=== PATIENT | female | born 1970 | race Caucasian/White ===

== ENCOUNTER 2017-02-03 19:25 | Inpatient (IN) | payer OTHER ==
[~2017-02-03] VITALS: Ht 157.5 cm; Wt 60.6 kg
[~2017-02-03 19:25] MED LIST: CYCL-36 PO
[2017-02-03 19:38] VITALS: BP 106/67; PULSE 99; RESP 16; TEMP 100; O2SAT 100
[2017-02-03 19:53] VITALS: BP 106/67; PULSE 99; RESP 16; TEMP 100; O2SAT 100
[2017-02-03] MEDS ORDERED: APIX5TAB PO (20:02)
[2017-02-03] MEDS ORDERED: MELA1TAB18 PO (20:02)
[2017-02-03] MEDS ORDERED: CLAR10CA3 PO (20:02)
[2017-02-03] MEDS ORDERED: PROM25TA10 PO (20:02)
[2017-02-03] MEDS ORDERED: LORA-474 PO (20:02)
[2017-02-03] MEDS ORDERED: SODIUM CHLOR 0.9% 1000 ML INJ 1,000 ML IV ONE (20:04)
[2017-02-03] MEDS ORDERED: PROMETHAZINE HCL 25 MG TAB PO ONE (20:15)
[2017-02-03] MEDS ORDERED: LORazepam 2 MG/ML VIAL IV PUSH ONE (20:15)
--- NOTE | 2017-02-03 20:16 | PD ---
HPI Chief Complaint: GI Complaint Time Seen by Provider: 19:58 Travel History International Travel<30 days: No Contact w/Intl Traveler<30days: No Traveled to known affect area: No History of Present Illness HPI 46-year-old female with history of breast cancer status post bilateral mastectomy, first round of chemotherapy 1 week ago at [facility], diagnosed with a left upper extremity DVT one week ago and started on Eliquis, here for evaluation of fevers, chills, nausea, vomiting. Symptoms started yesterday. Occasionally she has sharp epigastric abdominal discomfort/pain. Currently she denies having abdominal pain. She has had some loose bowel movements. Emesis and bowel movements have been nonbloody. She denies cough, hemoptysis, or upper respiratory symptoms. PFSH Past Medical History Cancer: Yes (BREAST) Cardiovascular Problems: No Chemotherapy: Yes (LAST [place] 01/27) Diabetes: No Diminished Hearing: No Glaucoma: No Hepatitis: No Hiatal Hernia: No Hypertension: No Medical other: Yes (EPILEPSY A CHILD) Respiratory: No Thyroid Disease: No ?: Unknown Past Surgical History Oral Surgery: Yes (TONSILLECTOMY) Pacemaker: No Tonsillectomy: Yes Other Surgery: Yes (ACL REPAIR AND TUMOR REMOVED FROM THUMB) Social History Alcohol Use: Yes (OCC) Tobacco Use: No Substance Use: No Allergies-Medications (Allergen,Severity, Reaction): Coded Allergies: Bee Sting (Verified Allergy, Severe, ENTIRE BODY SWELLS, 02/03/17) Penicillin (Verified Allergy, Severe, HIVES, 02/03/17) Cipro (Verified Allergy, Unknown, 02/03/17) Reported Meds & Prescriptions Reported Meds & Active Scripts Active Reported Melatonin 10 Mg Tab 10 Mg PO HS PRN Ativan (Lorazepam) 1 Mg Tab 1 Mg PO Q8H PRN Claritin (Loratadine) 10 Mg Cap 10 Mg PO DAILY Phenergan (Promethazine HCl) 25 Mg Tablet 25 Mg PO Q6H PRN Eliquis (Apixaban) 5 Mg Tab 10 Mg PO BID Review of Systems Except as stated in HPI: all other systems reviewed are Neg Physical Exam Narrative GENERAL: Well-developed, well-nourished, no acute distress. SKIN: Focused skin assessment warm/dry. No rash. HEAD: Atraumatic. Normocephalic. EYES: Pupils equal and round. No scleral icterus. No injection or drainage. ENT: Mucous membranes pink and moist. NECK: Trachea midline. No JVD. No nuchal rigidity. CARDIOVASCULAR: Regular rate and rhythm. RESPIRATORY: No accessory muscle use. Clear to auscultation. Breath sounds equal bilaterally. GASTROINTESTINAL: Abdomen soft, non-tender, nondistended. MUSCULOSKELETAL: Left arm with moderate edema with compared to the right with moderate diffuse tenderness. Left arm is supple. NEUROLOGICAL: Awake and alert. No obvious cranial nerve deficits. Motor grossly within normal limits. Normal speech. PSYCHIATRIC: Appropriate mood and affect; insight and judgment normal. Data Data Last Documented VS Vital Signs Date Time Temp Pulse Resp B/P Pulse Ox O2 Delivery O2 Flow Rate FiO2 02/03/17 22:00 101 18 97/56 99 Room Air 02/03/17 19:53 100.0 Orders Complete Blood Count With Diff (02/03/17 20:04) Comprehensive Metabolic Panel (02/03/17 20:04) Beta Hcg (Quant/Titer) (02/03/17 20:04) Prothrombin Time / Inr (Pt) (02/03/17 20:04) Act Partial Throm Time (Ptt) (02/03/17 20:04) Lactic Acid Sepsis Protocol (02/03/17 20:04) Urinalysis - C+S If Indicated (02/03/17 20:04) Influenzae A/B Antigen (02/03/17 20:04) Blood Culture (02/03/17 20:04) Chest, Single Ap (02/03/17 20:04) Blood Glucose (02/03/17 20:04) Ecg Monitoring (02/03/17 20:04) Iv Access Insert/Monitor (02/03/17 20:04) Oximetry (02/03/17 20:04) Oxygen Administration (02/03/17 20:04) Sodium Chlor 0.9% 1000 Ml Inj (Ns 1000 M (02/03/17 20:04) Promethazine (Phenergan) (02/03/17 20:15) Lorazepam Inj (Ativan Inj) (02/03/17 20:15) Acetaminophen (Tylenol) (02/03/17 21:30) Morphine Inj (Morphine Inj) (02/03/17 21:45) Piperacil-Tazo 4.5 Gm Premix (Zosyn 4.5 (02/03/17 22:15) Influenzae A/B Antigen (02/03/17 22:21) Cefepime Inj (Maxipime Inj) (02/03/17 22:30) Admit To Inpatient (02/03/17 ) Vital Signs (Adult) Q4H (02/03/17 22:23) Activity Oob With Assistance (02/03/17 22:23) Geological Manager / Telemetry .CONTINUOUS (02/03/17 22:23) Diet Heart Healthy (02/04/17 Breakfast) Sodium Chloride 0.9% Flush (Ns Flush) (02/03/17 22:30) Sodium Chloride 0.9% Flush (Ns Flush) (02/04/17 09:00) Basic Metabolic Panel (Bmp) (02/04/17 06:00) Complete Blood Count With Diff (02/04/17 06:00) Case Management Consult (02/03/17 22:23) Naloxone Inj (Narcan Inj) (02/03/17 22:30) Inpatient Certification (02/03/17 ) Admit Order (Ed Use Only) (02/03/17 22:25) Vancomycin Consult Pharmacy (Vancomycin (02/03/17 22:30) Cefepime Inj (Maxipime Inj) (02/04/17 12:00) Labs Laboratory Tests Test 02/03/17 02/03/17 20:50 21:30 White Blood Count 1.4 TH/MM3 Red Blood Count 4.15 MIL/MM3 Hemoglobin 12.5 GM/DL Hematocrit 37.1 % Mean Corpuscular Volume 89.3 FL Mean Corpuscular Hemoglobin 30.1 PG Mean Corpuscular Hemoglobin 33.7 % Concent Red Cell Distribution Width 12.4 % Platelet Count 145 TH/MM3 Mean Platelet Volume 8.3 FL Neutrophils (%) (Auto) % Lymphocytes (%) (Auto) % Monocytes (%) (Auto) % Eosinophils (%) (Auto) % Basophils (%) (Auto) % Neutrophils # (Auto) TH/MM3 Lymphocytes # (Auto) TH/MM3 Monocytes # (Auto) TH/MM3 Eosinophils # (Auto) TH/MM3 Basophils # (Auto) TH/MM3 CBC Comment AUTO DIFF Differential Total Cells 100 Counted Neutrophils % (Manual) 3 % Lymphocytes % 89 % Monocytes % 7 % Basophils % 1 % Neutrophils # (Manual) 0.0 TH/MM3 Differential Comment FINAL DIFF MANUAL Platelet Estimate LOW Platelet Morphology Comment NORMAL Red Cell Morphology Comment NORMAL Prothrombin Time 10.3 SEC Prothromb Time International 0.9 RATIO Ratio Activated Partial 32.0 SEC Thromboplast Time Sodium Level 136 MEQ/L Potassium Level 3.9 MEQ/L Chloride Level 105 MEQ/L Carbon Dioxide Level 23.0 MEQ/L Anion Gap 8 MEQ/L Blood Urea Nitrogen 10 MG/DL Creatinine 0.61 MG/DL Estimat Glomerular Filtration 107 ML/MIN Rate Random Glucose 104 MG/DL Lactic Acid Level 1.4 mmol/L Calcium Level 8.2 MG/DL Total Bilirubin 0.5 MG/DL Aspartate Amino Transf 79 U/L (AST/SGOT) Alanine Aminotransferase 176 U/L (ALT/SGPT) Alkaline Phosphatase 131 U/L Total Protein 6.9 GM/DL Albumin 3.3 GM/DL Human Chorionic Gonadotropin, LESS THAN 1 Quant MIU/ML Urine Color YELLOW Urine Turbidity CLEAR Urine pH 8.0 Urine Specific [place] 1.020 Urine Protein NEG mg/dL Urine Glucose (UA) 1000 OR GREATER mg/dL Urine Ketones NEG mg/dL Urine Occult Blood SMALL Urine Nitrite NEG Urine Bilirubin NEG Urine Leukocyte Esterase NEG Urine RBC 0-3 /hpf Urine WBC 3-5 /hpf Urine Squamous Epithelial 0-5 /hpf Cells Microscopic Urinalysis Comment CATH-CULT NOT IND MDM Medical Decision Making Medical Screen Exam Complete: Yes Emergency Medical Condition: Yes Medical Record Reviewed: Yes Differential Diagnosis Neutropenic fever, pneumonia, UTI, bacteremia, acute/surgical intra-abdominal process less likely Narrative Course Initial vital signs show heart rate 99, blood pressure 106/67, pulse ox 100% on room air, oral temp of 100F. CBC is remarkable for WBC 1.4, platelets 145, percent neutrophils and 3% CMP is remarkable for AST 79, ALT 176, otherwise unremarkable. Beta hCG is negative. Lactic acid is 1.4 UA shows 1000 greater glucose, small occult blood, not suggestive of UTI. Chest x-ray: No acute disease. Case discussed with on-call oncology fellow at [facility] covering for the patient' s oncologist Dr. Tony. Recommends admission with IV antibiotics and follow up blood cultures. Patient will be started on IV vancomycin and IV cefepime. Patient and the patient's family were made aware of all findings and plan for admission for IV antibiotics. Case discussed with hospitalist Dr. Salguero who will admit the patient to her service for neutropenic fever without obvious source. Critical Care Narrative Aggregate critical care time was 35 minutes. Time to perform other separately billable procedures was not included in the critical care time. My time did not include minutes spent treating any other patients simultaneously or on activities that did not directly contribute to the patient's treatment. The services I provided to this patient were to treat and/or prevent clinically significant deterioration that could result in: , permanent disability, septic shock I provided critical care services requiring my management, as noted below: Chart data review, documentation time, medication orders and management, vital sign assessments/reviewing monitor data, ordering and reviewing lab tests, ordering and interpreting/reviewing x-rays and diagnostic studies, care of the patient and discussion of the patient with the admitting physicians. Diagnosis Primary Impression: Neutropenic fever Admitting Information Admitting Physician Requests: Admit Tello Allen MD Feb 03, 2017 20:16
--- NOTE | 2017-02-03 20:31 | RADRPT ---
EXAM DATE/TIME: 02/03/2017 20:06 [facility] COMPARISON: CHEST SINGLE AP, May 16, 2015, 18:01. INDICATIONS : Fever. MEDICAL HISTORY : Carcinoma, breast. SURGICAL HISTORY : Infusaport. ENCOUNTER: Initial ACUITY: 1 day PAIN SCORE: 0/10 LOCATION: Bilateral chest FINDINGS: A single view of the chest demonstrates the lungs to be symmetrically aerated without evidence of mas s, infiltrate or effusion. The cardiomediastinal contours are unremarkable. Osseous structures are intact. CONCLUSION: No acute disease. Corwin Wallace MD on February 03, 2017 at 20:29 Board Certified Radiologist. This report was verified electronically.
[2017-02-03 21:01] LABS: HEMATOCRIT 37.1 % (35.0-46.0); MEAN CELL VOLUME 89.3 FL (80.0-100.0); MEAN CORPUSCULAR HEMOGLOBIN 30.1 PG (27.0-34.0); MEAN CORPUSCULAR HGB CONC 33.7 % (32.0-36.0); PLATELET COUNT 145 TH/MM3 (150-450); RED BLOOD COUNT 4.15 MIL/MM3 (4.00-5.30); RED CELL DISTRIBUTION WIDTH 12.4 % (11.6-17.2); WHITE BLOOD COUNT 1.4 TH/MM3 (4.0-11.0)
[2017-02-03 21:09] LABS: CHLORIDE 105 MEQ/L (98-107); POTASSIUM 3.9 MEQ/L (3.5-5.1); SODIUM (NA) 136 MEQ/L (136-145)
[2017-02-03 21:13] LABS: ANION GAP 8 MEQ/L (5-15); BLOOD UREA NITROGEN 10 MG/DL (7-18); HEMO FLAGS AUTO DIFF
[2017-02-03 21:16] LABS: ALT (GPT) 176 U/L (10-53); AST (GOT) 79 U/L (15-37); GLOMERULAR FILTRATION RATE 107 ML/MIN (>89)
[2017-02-03 21:17] LABS: TOTAL BILIRUBIN ADULT 0.5 MG/DL (0.2-1.0)
[2017-02-03 21:19] LABS: ALKALINE PHOSPHATASE 131 U/L (45-117)
[2017-02-03 21:21] LABS: BETA HCG QUANT LESS THAN 1 MIU/ML (0-5)
[2017-02-03 21:30] LABS: BLOOD, URINE SMALL (NEG); KETONE, URINE NEG (NEG); NITRITE,URINE NEG (NEG)
[2017-02-03] MEDS ORDERED: ACETAMINOPHEN 325 MG TAB PO ONE (21:30)
[2017-02-03 21:35] LABS: GLUCOSE,URINE 1000 OR GREATER mg/dL (NEG)
[2017-02-03 21:38] LABS: INTERNATIONAL NORMALIZED RATIO 0.9 RATIO; PROTHROMBIN TIME - PATIENT 10.3 SEC (9.8-11.6)
[2017-02-03] MEDS ORDERED: MORPHINE SULFATE 4 MG/ML INJ IV PUSH ONE (21:45)
[2017-02-03 21:47] LABS: BASOPHILS 1 % (0-2); PLATELET ESTIMATE SMEAR LOW (NORMAL); PLATELET MORPHOLOGY NORMAL (NORMAL); POLYS (SEG NEUTROPHILS) 3 % (16-70); SCAN/DIFF FINAL DIFF MANUAL; WBC DIFF SAMPLE 100
[2017-02-03 22:00] VITALS: BP 97/56; PULSE 101; RESP 18; O2SAT 99
[2017-02-03 22:02] LABS: URINE COLOR YELLOW (YELLW/STRAW)
[2017-02-03 22:03] LABS: COMMENT (UR) CATH-CULT NOT IND; CULTURE IF INDICATED CATH CULTURE NOT IND; RBC, URINE 0-3 /hpf (0-3); SQUAMOUS EPITHELIAL CELL URINE 0-5 /hpf (0-5)
[2017-02-03] MEDS ORDERED: PIPERACIL-TAZO 4.5 GM PREMIX 100 ML IV ONE (22:15)
[2017-02-03] MEDS ORDERED: SODIUM CHLORIDE 0.9% FLUSH 10 ML FLUSH IV FLUSH PRN (22:30)
[2017-02-03] MEDS ORDERED: Vancomycin Consult Pharmacy 1 EA OTHER SCH (22:30)
[2017-02-03] MEDS ORDERED: CEFEPIME INJ 1,000 MG in SODIUM CHLORIDE 0.9% INJ 100 ML IV ONE (22:30)
[2017-02-03] MEDS ORDERED: VANCOMYCIN INJ 1,000 MG in SODIUM CHLOR 0.9% 250 ML INJ 250 ML IV ONE (22:30)
[2017-02-03] MEDS ORDERED: NALOXONE HCL 0.4 MG/ML AMP IV PRN (22:30)
[2017-02-03 22:52] VITALS: BP 95/58; PULSE 95; RESP 16; TEMP 98.6; O2SAT 96
[2017-02-03 23:48] VITALS: BP 97/59; PULSE 88; RESP 16; O2SAT 100
[2017-02-04] VITALS (7 sets, daily range): BP systolic 96–119; BP diastolic 52–74; PULSE 88–102; RESP 16; TEMP 98.1–99.2; O2SAT 96–99
[2017-02-04] MEDS ORDERED: VANCOMYCIN INJ 1,600 MG in SODIUM CHLORID 0.9% 500 ML INJ 500 ML IV SCH (01:00)
[2017-02-04] MEDS ORDERED: MELATONIN 5 MG TAB PO ONE (02:15)
[2017-02-04] MEDS ORDERED: LORazepam 1 MG TAB PO ONE (02:15)
[2017-02-04 07:49] LABS: HEMATOCRIT 32.7 % (35.0-46.0); MEAN CORPUSCULAR HEMOGLOBIN 30.4 PG (27.0-34.0); PLATELET COUNT 126 TH/MM3 (150-450); RED BLOOD COUNT 3.55 MIL/MM3 (4.00-5.30); RED CELL DISTRIBUTION WIDTH 12.9 % (11.6-17.2); WHITE BLOOD COUNT 1.6 TH/MM3 (4.0-11.0)
[2017-02-04 07:51] LABS: HEMO FLAGS AUTO DIFF
[2017-02-04 07:55] LABS: POTASSIUM 4.1 MEQ/L (3.5-5.1)
[2017-02-04 07:58] LABS: BICARBONATE 22.7 MEQ/L (21.0-32.0)
[2017-02-04 08:34] LABS: BANDS 1 % (0-6); EOSINOPHILS 1 % (0-4); POLYS (SEG NEUTROPHILS) 9 % (16-70); WBC DIFF SAMPLE 100
[2017-02-04 08:35] LABS: DOHLE BODIES PRESENT (NONE SEEN); PLATELET ESTIMATE SMEAR LOW (NORMAL); PLATELET MORPHOLOGY NORMAL (NORMAL); SCAN/DIFF FINAL DIFF MANUAL
[2017-02-04 08:36] LABS: NEUTROPHIL # MANUAL DIFF 0.2 TH/MM3 (1.8-7.7)
[2017-02-04] MEDS: SODIUM CHLORIDE 0.9% FLUSH 10 ML FLUSH IV FLUSH SCH ×2 (09:00→20:45)
[2017-02-04] MEDS ORDERED: PROMETHAZINE HCL 25 MG TAB PO PRN ×2 (11:00→18:00)
--- NOTE | 2017-02-04 11:04 | HHI.HP ---
[facility] Service [place] [facility] Primary Care Physician No Primary Care Physician Admission Diagnosis neutropenic fever Diagnoses: Travel History International Travel<30 Days: No Contact w/Intl Traveler <30 Da: No Traveled to Known Affected Are: No History of Present Illness 46-year-old female with a history of breast cancer status post bilateral mastectomy, with most recent round of chemotherapy one week ago at [facility] in [facility] as well as diagnosis of left upper extremity DVT one week ago on Eliquis. He presents with a one-week history of nausea, vomiting, as well as a 3 day history of fevers up to 102 Fahrenheit. She reports some constipation which has resolved, however no diarrhea. She does have some pain at left axilla from DVT, however denies any new pain. Review of Systems Performed and negative except for history of present illness and past medical history. Past Family Social History Past Medical History Breast cancer. Status post bilateral mastectomy. Most recent chemotherapy 01/27. Epilepsy as a child. Past Surgical History Bilateral mastectomy Bone graft left arm Tonsillectomy Anterior cruciate ligament repair Reported Medications Reported Meds & Active Scripts Active Reported Melatonin 10 Mg Tab 10 Mg PO HS PRN Ativan (Lorazepam) 1 Mg Tab 1 Mg PO Q8H PRN Claritin (Loratadine) 10 Mg Cap 10 Mg PO DAILY Phenergan (Promethazine HCl) 25 Mg Tablet 25 Mg PO Q6H PRN Eliquis (Apixaban) 5 Mg Tab 10 Mg PO BID Allergies: Coded Allergies: Bee Sting (Verified Allergy, Severe, ENTIRE BODY SWELLS, 02/03/17) Penicillin (Verified Allergy, Severe, HIVES, 02/03/17) Cipro (Verified Allergy, Unknown, 02/03/17) Family History Mother with breast cancer diagnosed at age 36. Father healthy Social History Nonsmoker. Nondrinker. Denies illicit drugs. 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 Physical Exam Vital Signs Vital Signs Date Time Temp Pulse Resp B/P Pulse Ox O2 Delivery O2 Flow Rate FiO2 02/04/17 09:00 98.1 88 16 104/71 98 02/04/17 08:10 88 16 106/59 99 Room Air 7/25/17 07:16 99 Room Air 02/04/17 07:16 16 99 Room Air 02/04/17 06:51 94 16 96/52 98 Room Air 02/03/17 23:48 88 16 97/59 100 Room Air 02/03/17 22:52 98.6 95 16 95/58 96 Room Air 02/03/17 22:29 16 02/03/17 22:29 16 02/03/17 22:00 101 18 97/56 99 Room Air 02/03/17 19:53 100.0 99 16 106/67 100 02/03/17 19:38 100.0 99 16 106/67 100 Physical Exam GENERAL: This is a well-nourished, well-developed patient, in no apparent distress. Alert and oriented 3. SKIN: No rashes, ecchymoses or lesions. Cool and dry. [id number] in place. No surrounding erythema. HEAD: Atraumatic. Normocephalic. No temporal or scalp tenderness. EYES: Pupils equal round and reactive. Extraocular motions intact. No scleral icterus. No injection or drainage. ENT: Nose without bleeding, purulent drainage or septal hematoma. Throat without erythema, tonsillar hypertrophy or exudate. Uvula midline. Airway patent. NECK: Trachea midline. No JVD or lymphadenopathy. Supple, nontender, no meningeal signs. CARDIOVASCULAR: Regular rate and rhythm without murmurs, gallops, or rubs. RESPIRATORY: Clear to auscultation. Breath sounds equal bilaterally. No wheezes , rales, or rhonchi. GASTROINTESTINAL: Abdomen soft, non-tender, nondistended. No hepato-splenomegaly , or palpable masses. No guarding. MUSCULOSKELETAL: Extremities without clubbing, cyanosis, or edema. No joint tenderness, effusion, or edema noted. No calf tenderness. Negative Homans sign bilaterally. NEUROLOGICAL: Awake and alert. Cranial nerves II through XII intact. Motor and sensory grossly within normal limits. Five out of 5 muscle strength in all muscle groups. Normal speech. Laboratory Laboratory Tests Test 02/03/17 02/03/17 02/04/17 20:50 21:30 07:30 White Blood Count 1.4 1.6 Red Blood Count 4.15 3.55 Hemoglobin 12.5 10.8 Hematocrit 37.1 32.7 Mean Corpuscular Volume 89.3 92.0 Mean Corpuscular Hemoglobin 30.1 30.4 Mean Corpuscular Hemoglobin 33.7 33.0 Concent Red Cell Distribution Width 12.4 12.9 Platelet Count 145 126 Mean Platelet Volume 8.3 8.0 Neutrophils (%) (Auto) Lymphocytes (%) (Auto) Monocytes (%) (Auto) Eosinophils (%) (Auto) Basophils (%) (Auto) Neutrophils # (Auto) Lymphocytes # (Auto) Monocytes # (Auto) Eosinophils # (Auto) Basophils # (Auto) CBC Comment AUTO DIFF AUTO DIFF Differential Total Cells 100 100 Counted Neutrophils % (Manual) 3 9 Lymphocytes % 89 81 Monocytes % 7 8 Basophils % 1 Neutrophils # (Manual) 0.0 0.2 Differential Comment FINAL DIFF FINAL DIFF MANUAL MANUAL Platelet Estimate LOW LOW Platelet Morphology Comment NORMAL NORMAL Red Cell Morphology Comment NORMAL Prothrombin Time 10.3 Prothromb Time International 0.9 Ratio Activated Partial 32.0 Thromboplast Time Sodium Level 136 140 Potassium Level 3.9 4.1 Chloride Level 105 109 Carbon Dioxide Level 23.0 22.7 Anion Gap 8 8 Blood Urea Nitrogen 10 9 Creatinine 0.61 0.55 Estimat Glomerular Filtration 107 120 Rate Random Glucose 104 103 Lactic Acid Level 1.4 Calcium Level 8.2 7.6 Total Bilirubin 0.5 Aspartate Amino Transf 79 (AST/SGOT) Alanine Aminotransferase 176 (ALT/SGPT) Alkaline Phosphatase 131 Total Protein 6.9 Albumin 3.3 Human Chorionic Gonadotropin, LESS THAN 1 Quant Urine Color YELLOW Urine Turbidity CLEAR Urine pH 8.0 Urine Specific [place] 1.020 Urine Protein NEG Urine Glucose (UA) 1000 OR GREATER Urine Ketones NEG Urine Occult Blood SMALL Urine Nitrite NEG Urine Bilirubin NEG Urine Leukocyte Esterase NEG Urine RBC 0-3 Urine WBC 3-5 Urine Squamous Epithelial 0-5 Cells Microscopic Urinalysis Comment CATH-CULT NOT IND Band Neutrophils % 1 Eosinophils % 1 Dohle Bodies PRESENT Date/Time Procedure Status Source Growth 02/03/17 22:17 Influenza Types A,B Antigen (AALIYAH) - Final Complete Nasal Washing NEGATIVE FOR FLU A AND B ANTIGEN.... 02/03/17 21:35 Aerobic Blood Culture Received Blood Peripheral Pending 02/03/17 21:35 Anaerobic Blood Culture Received Blood Peripheral Pending Result Diagram: 02/04/1730 02/04/17 0730 Imaging Last Impressions Chest X-Ray 02/03/172003 Signed Impressions: Service Date/Time: Friday, February 03, 2017 20:06 - CONCLUSION: No acute disease. Corwin Wallace MD Assessment and Plan Assessment and Plan //Neutropenic sepsis -Patient reports temperatures up to 102. 100.0 in the ER here. Leukopenia, with ANC 0.0 on admission, now 0.2. Tachycardia 99 -Chest x-ray, urinalysis appears negative. Follow-up blood cultures.- -Started on cefepime in the ER, as well as vancomycin. We will increase frequency of cefepime to every 8 hours, and discontinue vancomycin. //DVT. -Restart home Eliquis. Transition to lower dose when appropriate. Hematology will be following. Appreciate assistance. //Nausea vomiting. Likely secondary to chemotherapy. Phenergan. //Transaminitis. Elevation in AST, ALC, alkaline phosphatase. No acute findings on exam. Will check ultrasound liver. //DVT prophylaxis. Patient is on Eliquis. Code Status Full code Discussed Condition With Patient, nurse. Physician Certification 2 Midnight Certification Type: Admission for Inpatient Services Order for Inpatient Services The services are ordered in accordance with Medicare regulations or non- Medicare payer requirements, as applicable. In the case of services not specified as inpatient-only, they are appropriately provided as inpatient services in accordance with the 2-midnight benchmark. Estimated LOS (days): 4 days is the estimated time the patient will need to remain in the hospital, assuming treatment plan goals are met and no additional complications. Post-Hospital Plan: Home Steve Lofton MD Feb 04, 2017 11:04
[2017-02-04] MEDS ORDERED: PILL SPLITTER OTHER PRN (11:15)
[2017-02-04] MEDS: LORazepam 1 MG TAB PO PRN (11:27)
[2017-02-04] MEDS ORDERED: NALOXONE HCL 0.4 MG/ML AMP IV PRN (12:00)
[2017-02-04] MEDS ORDERED: MELATONIN 5 MG TAB PO PRN (12:00)
[2017-02-04] MEDS ORDERED: CEFEPIME INJ 2,000 MG in SODIUM CHLORIDE 0.9% INJ 100 ML IV SCH (12:00)
[2017-02-04] MEDS ORDERED: oxyCODONE/ACETAMINOPHEN 5 MG/325 MG TAB PO PRN (12:00)
[2017-02-04] MEDS ORDERED: HYDROmorphone HCL PF 1 MG/ML VIAL IV PRN (12:00)
[2017-02-04] MEDS ORDERED: HYDROmorphone HCL PF 1 MG/ML VIAL SQ ONE (12:15)
[2017-02-04] MEDS ORDERED: HYDROmorphone HCL PF 1 MG/ML VIAL IV PUSH ONE ×2 (12:15→13:00)
[2017-02-04] MEDS ORDERED: PROT40TA PO (12:18)
[2017-02-04] MEDS ORDERED: OXYC1CAP PO (12:18)
[2017-02-04] MEDS ORDERED: IBUP-1129 (12:23)
[2017-02-04] MEDS: CEFEPIME INJ 2,000 MG in SODIUM CHLORIDE 0.9% INJ 100 ML IV SCH ×2 (14:42→20:44)
--- NOTE | 2017-02-04 15:13 | RADRPT ---
EXAM DATE/TIME: 02/04/2017 11:09 [facility] COMPARISON: No previous studies available for comparison. INDICATIONS : Increased lab values. Nausea, vomiting, fever. MEDICAL HISTORY : Carcinoma, breast. DVT. Chemotherapy. SURGICAL HISTORY : Mastectomy, bilateral. Tonsillectomy. ACL repair. ENCOUNTER: Initial ACUITY: 1 day PAIN SCORE: 10/10 LOCATION: Right upper quadrant MEASUREMENTS: LIVER: 18.2 cm length COMMON DUCT: 3 mm RIGHT KIDNEY: 11.4 x 5.0 x 4.6 cm SPLEEN: 8.9 cm length FINDINGS: LIVER: Normal echotexture without focal lesion or ductal dilatation. COMMON DUCT: No intraluminal mass or stone visualized. GALLBLADDER: Contains no stones, demonstrates no wall thickening or pericholecystic fluid. PANCREAS: The visualized portions are within normal limits. RIGHT KIDNEY: No hydronephrosis, stone or mass. SPLEEN: No focal lesion. CONCLUSION: Normal examination. Anatoly Anderson MD on February 04, 2017 at 15:10 Board Certified Radiologist. This report was verified electronically.
[2017-02-04] MEDS ORDERED: PROMETHAZINE INJ 25 MG/ML VIAL IM PRN (20:30)
[2017-02-04] MEDS ORDERED: ONDANSETRON HCL 4 MG/2 ML VIAL IV PUSH PRN (20:30)
[2017-02-04] MEDS: ENOXAPARIN SODIUM 60 MG/0.6 ML SYRINGE SQ SCH (20:44)
--- NOTE | 2017-02-04 20:47 | MB ---
cc: DAMI LOFTON MD, RUBY ANNE E. M.D. DATE OF CONSULTATION: 02/04/2017 DATE OF : 1970 REFERRING PHYSICIAN: Dami Lofton MD. CHIEF COMPLAINT: Dr. Lofton requested consultation for Mrs. Lares regarding neutropenic fever. HISTORY OF PRESENT ILLNESS: Mrs. Lares is a 46-year-old woman with significant family history of breast cancer. Her mother was diagnosed with breast cancer in her 30s. She was under the care of Dr. Aj at [facility], and ultimately went to have her definitive surgery. She transferred her care to Dr. Tony, medical oncologist, at [facility]. Her pathology report was not available during the consultation but she reports being stage III-A disease having greater than 3 cm tumor, possible satellite, as well as four lymph nodes positive. She has had definitive surgery, bilateral mastectomy. She has recovered from her reconstructive surgery. She is receiving adjuvant systemic chemotherapy. Her first dose of chemotherapy was on Friday, January 27. She was feeling well over the weekend and thus went to the [facility]. She began feeling ill several days prior to presentation. She apparently attempted to call her [facility] on-call physician and did not get a call back. She was advised by a family friend, Dr. Walters, to come in through the emergency room. She had a temperature of 100 in the emergency room repeated. Blood cultures were obtained. Her white count was 1.4 and ANC of 0. She was started on empiric antibiotic therapy with cefepime. She has been afebrile ever since. She had one dose of vancomycin in the emergency room. She still feels ill. She has chills. She feels weak. She denies any mucositis. She has no nausea or vomiting. Her course is complicated by left upper extremity deep venous thrombosis diagnosed at [facility]. She was started on Eliquis. She continues to have the pain and discomfort in the arm, unable to raise it. During her hospitalization, she was found to have liver function elevation. Ultrasound of the liver was negative. Chest x-ray shows no acute disease. Blood cultures negative so far, the last 24 hours. Influenzae A and B are negative. She has no sick contacts. No headaches. She denies any diarrhea, no urinary complaints. She has a lot of pets at home. The rest of her review of systems is negative. PAST MEDICAL HISTORY: 1. High risk right breast cancer. 2. Epilepsy. 3. Neutropenic fever. 4. Anemia. 5. Neutropenia. PAST SURGICAL HISTORY 1. Bilateral mastectomy and reconstruction. 2. Bone graft left arm. 3. Tonsillectomy 4. Anterior cruciate ligament repair. SOCIAL HISTORY She drinks alcohol occasionally. Denies any tobacco or illicit drug use. She has four daughters. FAMILY HISTORY Mother had breast cancer. ALLERGIES: CIPRO PENICILLIN BEE STING CURRENT MEDICATIONS: 1. Eliquis 2. Phenergan 3. Cefepime 4. Melatonin 5. Roxicodone 6. Percocet 7. Naloxone. 8. Lorazepam p.r.n. PHYSICAL EXAMINATION: VITAL SIGNS: Temperature 99.0, heart rate 95, respiratory rate 16, blood pressure 101/66, saturation 98%. GENERAL: Mrs. Lares is a well-developed, well-nourished pleasant woman in no acute distress. She is quite knowledgeable about medicine. HEENT: Pupils equal, round, reactive to light and accommodation. Oropharynx is clear. NECK: Supple. LUNGS: Clear. CARDIOVASCULAR: Normal rate and rhythm. ABDOMEN: Benign. LOWER EXTREMITIES: No edema. Left arm swelling with ecchymosis and superficial varicosities are noted. LABORATORY DATA As described above. Repeat CBC shows a white count of 1.6, hemoglobin 10.8, platelet count 126, ANC of 200. ASSESSMENT/PLAN Mrs. Lares is a 46-year-old woman with history of seizures / epilepsy diagnosed with a high-risk breast cancer. She has had definitive surgery and is receiving adjuvant systemic chemotherapy. Her course was complicated by left upper extremity deep vein thromboses, does not appear to be responding to Eliquis. She had a significant amount of pain and discomfort. She has developed neutropenic fever and is admitted to the hospital for IV antibiotic therapy. Continue IV antibiotic therapy. Her white count appears to be recovering. I am not certain if she will be well enough to proceed with cycle #2 of adjuvant systemic chemotherapy at [facility]. She was offered a follow up at our cancer center to proceed with chemotherapy treatment locally allowing her [facility] physicians to make her decisions. Dose dense Adriamycin, cytoxan, followed by Taxol is actually quite standard of care. We will continue to support her. Anticipate that her white count will be recovering after the on body injector. She reports that the drug dispensed without any events. There is unfortunate no monocytosis as yet. Will continue to follow. We discussed the risks and benefits of low-molecular weight heparin for upper extremity deep vein thromboses. We will obtain an ultrasound and compare to that at [facility]. There has been no response while on Eliquis. She has been on Eliquis since Friday. She is taking samples. She was reluctant to use her low-molecular weight heparin given its cost. We will try to see if she responds well to the Lovenox. She has tried anti-inflammatory medication without much relief. She is taking pain medication without much relief. MD LETICIA Jimenez/YA /7:09 PM /8:33 PM ADDI
[2017-02-04] MEDS ORDERED: APIXABAN 5 MG TABLET PO SCH (21:00)
[2017-02-05 04:00] VITALS: BP 94/60; PULSE 93; RESP 16; TEMP 99.5; O2SAT 98
[2017-02-05] MEDS: CEFEPIME INJ 2,000 MG in SODIUM CHLORIDE 0.9% INJ 100 ML IV SCH ×3 (05:58→23:21)
[2017-02-05 08:00] VITALS: BP 83/56; PULSE 94; RESP 20; TEMP 99.2; O2SAT 98
[2017-02-05] MEDS: ENOXAPARIN SODIUM 60 MG/0.6 ML SYRINGE SQ SCH ×2 (08:00→20:17)
[2017-02-05] MEDS: SODIUM CHLORIDE 0.9% FLUSH 10 ML FLUSH IV FLUSH SCH ×2 (09:00→20:17)
[2017-02-05] MEDS ORDERED: PANTOPRAZOLE SOD 40 MG DELAYED RELEASE TAB PO ONE (11:00)
[2017-02-05] MEDS ORDERED: POLYETHYLENE GLYCOL 17 GM PKG PO ONE (11:00)
--- NOTE | 2017-02-05 11:00 | HHI.PR ---
Subjective Remarks Patient says she is feeling all right this morning. Left axillary pain secondary to recent DVT. Denies any chest pain or shortness of breath. Denies any abdominal pain. No bowel movement in the past few days. Objective Vital Signs Date Time Temp Pulse Resp B/P Pulse Ox O2 Delivery O2 Flow Rate FiO2 02/05/17 08:00 99.2 94 20 83/56 98 02/05/17 04:00 99.5 93 16 94/60 98 02/04/17 23:39 18 02/04/17 20:00 99.2 102 16 119/65 96 02/04/17 16:00 99.0 95 16 101/66 98 02/04/17 12:00 98.8 89 16 100/74 99 I/O 02/04/17 02/04/17 02/04/17 02/05/17 02/05/17 02/05/17 07:00 15:00 23:00 07:00 15:00 23:00 Intake Total 100 ml 600 ml 100 ml 660 ml Balance 100 ml 600 ml 100 ml 660 ml Intake Oral 600 ml 660 ml IV Total 100 ml 100 ml # Voids 2 5 # Bowel Movements 0 0 Result Diagram: 02/04/17 0730 02/04/17 0730 Imaging Last Impressions Liver Ultrasound 02/04/17 0000 Signed Impressions: Service Date/Time: Saturday, February 04, 2017 11:09 - CONCLUSION: Normal examination. Anatoly Anderson MD Chest X-Ray 02/03/172003 Signed Impressions: Service Date/Time: Friday, February 03, 2017 20:06 - CONCLUSION: No acute disease. Corwin Wallace MD Objective Remarks GENERAL: Patient sitting up in bed. Appears couple. Alert and oriented 3. SKIN: Warm and dry. HEAD: Normocephalic. EYES: No scleral icterus. No injection or drainage. NECK: Supple, trachea midline. No JVD. CARDIOVASCULAR: Regular rate and rhythm without murmurs, gallops, or rubs. RESPIRATORY: Breath sounds equal bilaterally. No accessory muscle use. GASTROINTESTINAL: Abdomen soft, non-tender, nondistended. MUSCULOSKELETAL: No cyanosis, or edema. BACK: Nontender without obvious deformity. No CVA tenderness. A/P Assessment and Plan //Neutropenic fever -Patient reports temperatures up to 102. 100.0 in the ER here. Leukopenia, with ANC 0.0 on admission, now 0.2. Tachycardia 99 -Chest x-ray, urinalysis appears negative. Follow-up blood cultures.- -Started on cefepime in the ER, as well as vancomycin. We will increase frequency of cefepime to every 8 hours, and discontinue vancomycin. -02/05. Cultures continue negative. Continue to monitor. Appreciate oncology assistance. //DVT. -Restart home Eliquis. Transition to lower dose when appropriate. Hematology will be following. Appreciate assistance. -Continue Lovenox as per oncology. Appreciate assistance. //Nausea vomiting. Likely secondary to chemotherapy. Continue Phenergan. //Transaminitis. Elevation in AST, ALC, alkaline phosphatase. No acute findings on exam. -Ultrasound liver with no abnormalities Repeat LFTs today. //DVT prophylaxis. Patient is on Eliquis. Discharge Planning Home when cleared by oncology. Steve Lofton MD Feb 05, 2017 11:00
[2017-02-05 11:30] LABS: AUTOMATED NEUTROPHIL # 1.4 TH/MM3 (1.8-7.7); BASOPHIL % 0.7 % (0.0-2.0); EOSINOPHIL % 1.2 % (0.0-4.0); HEMATOCRIT 33.5 % (35.0-46.0); HEMO FLAGS DIFF FINAL; LYMPH % 38.6 % (9.0-44.0); LYMPHOCYTE # 1.2 TH/MM3 (1.0-4.8); MEAN CELL VOLUME 90.1 FL (80.0-100.0); MEAN CORPUSCULAR HEMOGLOBIN 29.9 PG (27.0-34.0); MEAN CORPUSCULAR HGB CONC 33.2 % (32.0-36.0); NEUT % 44.5 % (16.0-70.0); PLATELET COUNT 164 TH/MM3 (150-450); RED BLOOD COUNT 3.72 MIL/MM3 (4.00-5.30); RED CELL DISTRIBUTION WIDTH 12.4 % (11.6-17.2); WHITE BLOOD COUNT 3.1 TH/MM3 (4.0-11.0)
[2017-02-05 11:33] LABS: CHLORIDE 106 MEQ/L (98-107); POTASSIUM 3.5 MEQ/L (3.5-5.1); SODIUM (NA) 141 MEQ/L (136-145)
[2017-02-05 12:00] VITALS: BP 89/57; PULSE 93; RESP 20; TEMP 98.8; O2SAT 98
[2017-02-05 12:06] LABS: ALKALINE PHOSPHATASE 115 U/L (45-117); ALT (GPT) 103 U/L (10-53); ANION GAP 9 MEQ/L (5-15); AST (GOT) 29 U/L (15-37); BICARBONATE 26.2 MEQ/L (21.0-32.0); BLOOD UREA NITROGEN 10 MG/DL (7-18); GLOMERULAR FILTRATION RATE 91 ML/MIN (>89); TOTAL BILIRUBIN ADULT 0.2 MG/DL (0.2-1.0)
[2017-02-05] MEDS ORDERED: PHARMACY ORDERED LAB ONE (12:45)
[2017-02-05 16:00] VITALS: BP 100/62; PULSE 85; RESP 20; TEMP 99.4; O2SAT 98
[2017-02-05] MEDS: LORazepam 1 MG TAB PO PRN (17:09)
[2017-02-05 20:00] VITALS: BP 98/60; PULSE 90; RESP 20; TEMP 99; O2SAT 100
[2017-02-05] MEDS ORDERED: SODIUM CHLORIDE 0.9% FLUSH 10 ML FLUSH IV FLUSH PRN (22:15)
[2017-02-05 23:00] VITALS: PULSE 96
[2017-02-06] VITALS: BP 108/76; PULSE 98; RESP 20; TEMP 98.7; O2SAT 98
[2017-02-06 04:00] VITALS: BP 82/59; PULSE 92; RESP 20; TEMP 98.5; O2SAT 99
[2017-02-06] MEDS: CEFEPIME INJ 2,000 MG in SODIUM CHLORIDE 0.9% INJ 100 ML IV SCH ×2 (06:36→14:40)
[2017-02-06 08:00] VITALS: BP 86/63; PULSE 90; RESP 19; TEMP 99.3; O2SAT 95
[2017-02-06] MEDS: ENOXAPARIN SODIUM 60 MG/0.6 ML SYRINGE SQ SCH (08:58)
[2017-02-06] MEDS: SODIUM CHLORIDE 0.9% FLUSH 10 ML FLUSH IV FLUSH SCH (08:58)
[2017-02-06] MEDS ORDERED: PANTOPRAZOLE SOD 40 MG DELAYED RELEASE TAB PO SCH (09:00)
[2017-02-06] MEDS ORDERED: POLYETHYLENE GLYCOL 17 GM PKG PO SCH (09:00)
[2017-02-06 12:00] VITALS: BP 92/70; PULSE 89; RESP 18; TEMP 98.8; O2SAT 96
--- NOTE | 2017-02-06 13:05 | HHI.PR ---
Subjective Remarks Patient seen today in follow-up for neutropenia count pending today. Patient also complaining of left axillary pain is worse with movement issues. No further fevers. Objective Vitals Vital Signs Date Time Temp Pulse Resp B/P Pulse Ox O2 Delivery O2 Flow Rate FiO2 02/06/17 12:00 98.8 89 18 92/70 96 02/06/17 08:00 99.3 90 19 86/63 95 02/06/17 04:00 98.5 92 20 82/59 99 02/06/17 00:00 98.7 98 20 108/76 98 02/05/17 23:00 96 02/05/17 20:00 99.0 90 20 98/60 100 02/05/17 16:00 99.4 85 20 100/62 98 I/O 02/05/17 02/05/17 02/05/17 02/06/17 02/06/17 02/06/17 07:00 15:00 23:00 07:00 15:00 23:00 Intake Total 660 ml 420 ml 480 ml 160 ml Balance 660 ml 420 ml 480 ml 160 ml Intake Oral 660 ml 420 ml 480 ml 60 ml IV Total 100 ml # Voids 5 3 2 1 # Bowel Movements 0 0 0 Result Diagram: 02/05/17 1100 02/05/17 1100 Imaging Last Impressions Liver Ultrasound 02/04/17 0000 Signed Impressions: Service Date/Time: Saturday, February 04, 2017 11:09 - CONCLUSION: Normal examination. Anatoly Anderson MD Chest X-Ray 02/03/172003 Signed Impressions: Service Date/Time: Friday, February 03, 2017 20:06 - CONCLUSION: No acute disease. Corwin Wallace MD Objective Remarks GENERAL: This is a well-nourished, well-developed patient, in no apparent distress. CARDIOVASCULAR: Regular rate and rhythm without murmurs, gallops, or rubs. RESPIRATORY: Clear to auscultation. Breath sounds equal bilaterally. No wheezes , rales, or rhonchi. GASTROINTESTINAL: Abdomen soft, non-tender, nondistended. Normal active bowel sounds MUSCULOSKELETAL:left axillary tenderness other 3 Extremities without clubbing, cyanosis, or edema. NEURO: Alert & Oriented x4 to person, place, time, situation. Moves all ext x4 A/P Problem List: (1) Neutropenic fever ICD Code: D70.9 Status: Acute Plan: Appears to be resolved ANC slowly improving Likely related to chemotherapy Continue cefepime every 8 hours Hematology eval appreciated (2) Transaminitis ICD Code: R74.0 Status: Resolved Plan: Resolved, ultrasound of the liver within normal limits (3) DVT (deep venous thrombosis) ICD Code: I82.409 Status: Acute Plan: Continue Lovenox here, Eliquis at discharge (4) Breast CA ICD Code: C50.919 Status: Acute Plan: Currently undergoing chemotherapy in [place], patient complaining of axillary web syndrome symptoms/pain in the left under arm related to scar tissue. She has requested pain medication as the pain is moderate and worse with movement Rx NSAIDs, moist heat, movement (5) Hypotension ICD Code: I95.9 Status: Acute Plan: Patient has chronic hypotension which is asymptomatic. We'll continue to follow closely Discharge Planning pending ANC Problem Qualifiers (1) DVT (deep venous thrombosis): Emerald Storm MD Feb 06, 2017 13:05
[2017-02-06] MEDS ORDERED: IBUPROFEN 400 MG TAB PO PRN (13:15)
[2017-02-06 15:57] LABS: AUTOMATED NEUTROPHIL # 2.5 TH/MM3 (1.8-7.7); BASOPHIL # 0.1 TH/MM3 (0-0.2); BASOPHIL % 1.1 % (0.0-2.0); EOSINOPHIL % 0.4 % (0.0-4.0); HEMATOCRIT 34.8 % (35.0-46.0); HEMO FLAGS DIFF FINAL; LYMPH % 30.2 % (9.0-44.0); LYMPHOCYTE # 1.4 TH/MM3 (1.0-4.8); MEAN CELL VOLUME 90.8 FL (80.0-100.0); MEAN CORPUSCULAR HEMOGLOBIN 29.6 PG (27.0-34.0); MEAN CORPUSCULAR HGB CONC 32.6 % (32.0-36.0); MONO % 12.2 % (0.0-8.0); NEUT % 56.1 % (16.0-70.0); PLATELET COUNT 178 TH/MM3 (150-450); RED BLOOD COUNT 3.83 MIL/MM3 (4.00-5.30); RED CELL DISTRIBUTION WIDTH 12.8 % (11.6-17.2); WHITE BLOOD COUNT 4.6 TH/MM3 (4.0-11.0)
[2017-02-06 16:00] VITALS: BP 96/68; PULSE 85; RESP 18; TEMP 98.6; O2SAT 95
[2017-02-06] MEDS ORDERED: APIX5TAB PO (16:47)
--- NOTE | 2017-02-06 16:47 | HHI.DCPOC ---
Discharge Care Plan Diagnosis: (1) DVT (deep venous thrombosis) (2) Neutropenic fever (3) Transaminitis Goals to Promote Your Health * To prevent worsening of your condition and complications * To maintain your health at the optimal level Directions to Meet Your Goals Take your medications as prescribed Follow your dietary instruction Follow activity as directed Keep your appointments as scheduled Take your immunizations and boosters as scheduled If your symptoms worsen call your PCP, if no PCP go to Urgent Care Center or Emergency Room Smoking is Dangerous to Your Health. Avoid second hand smoke Call the 24-hour hour crisis hotline for domestic abuse at Emerald Storm MD Feb 06, 2017 16:47
--- NOTE | 2017-02-06 16:49 | HHI.DS ---
Discharge Summary Admission Date Feb 03, 2017 at 22:27 Discharge Date: Feb 06, 2017 Admitting Diagnosis neutropenic fever (1) Neutropenic fever ICD Code: D70.9 (2) Transaminitis ICD Code: R74.0 (3) DVT (deep venous thrombosis) ICD Code: I82.409 (4) Breast CA ICD Code: C50.919 (5) Hypotension ICD Code: I95.9 Procedures none Brief History - From Admission 46-year-old female with a history of breast cancer status post bilateral mastectomy, with most recent round of chemotherapy one week ago at [facility] in [facility] as well as diagnosis of left upper extremity DVT one week ago on [facility]. He presents with a one-week history of nausea, vomiting, as well as a 3 day history of fevers up to 102 Fahrenheit. She reports some constipation which has resolved, however no diarrhea. She does have some pain at left axilla from DVT, however denies any new pain. CBC/BMP: 02/06/17 1548 02/05/17 1100 Significant Findings Laboratory Tests Test 02/03/17 02/03/17 02/04/17 02/05/17 20:50 21:30 07:30 11:00 White Blood Count 1.4 TH/MM3 1.6 TH/MM3 3.1 TH/MM3 (4.0-11.0) (4.0-11.0) (4.0-11.0) Platelet Count 145 TH/MM3 126 TH/MM3 (150-450) (150-450) Neutrophils % (Manual) 3 % (16-70) 9 % (16-70) Lymphocytes % 89 % (9-44) 81 % (9-44) Neutrophils # (Manual) 0.0 TH/MM3 0.2 TH/MM3 (1.8-7.7) (1.8-7.7) Platelet Estimate LOW (NORMAL) LOW (NORMAL) Activated Partial 32.0 SEC Thromboplast Time (24.3-30.1) Calcium Level 8.2 MG/DL 7.6 MG/DL 8.4 MG/DL (8.5-10.1) (8.5-10.1) (8.5-10.1) Aspartate Amino Transf 79 U/L (15-37) (AST/SGOT) Alanine Aminotransferase 176 U/L (10-53) 103 U/L (10-53) (ALT/SGPT) Alkaline Phosphatase 131 U/L (45-117) Albumin 3.3 GM/DL 2.9 GM/DL (3.4-5.0) (3.4-5.0) Urine Glucose (UA) 1000 OR GREATER mg/dL (NEG) Urine Occult Blood SMALL (NEG) Red Blood Count 3.55 MIL/MM3 3.72 MIL/MM3 (4.00-5.30) (4.00-5.30) Hemoglobin 10.8 GM/DL 11.1 GM/DL (11.6-15.3) (11.6-15.3) Hematocrit 32.7 % 33.5 % (35.0-46.0) (35.0-46.0) Dohle Bodies PRESENT (NONE SEEN) Chloride Level 109 MEQ/L (98-107) Monocytes (%) (Auto) 15.0 % (0.0-8.0) Neutrophils # (Auto) 1.4 TH/MM3 (1.8-7.7) Random Glucose 110 MG/DL (74-106) Test 02/06/17 15:48 Red Blood Count 3.83 MIL/MM3 (4.00-5.30) Hemoglobin 11.4 GM/DL (11.6-15.3) Hematocrit 34.8 % (35.0-46.0) Monocytes (%) (Auto) 12.2 % (0.0-8.0) Imaging Last Impressions Liver Ultrasound 02/04/17 0000 Signed Impressions: Service Date/Time: Saturday, February 04, 2017 11:09 - CONCLUSION: Normal examination. Anatoly Anderson MD Chest X-Ray 02/03/172003 Signed Impressions: Service Date/Time: Friday, February 03, 2017 20:06 - CONCLUSION: No acute disease. Corwin Wallace MD PE at Discharge GENERAL: This is a well-nourished, well-developed patient, in no apparent distress. CARDIOVASCULAR: Regular rate and rhythm without murmurs, gallops, or rubs. RESPIRATORY: Clear to auscultation. Breath sounds equal bilaterally. No wheezes , rales, or rhonchi. GASTROINTESTINAL: Abdomen soft, non-tender, nondistended. Normal active bowel sounds MUSCULOSKELETAL:left axillary tenderness other 3 Extremities without clubbing, cyanosis, or edema. NEURO: Alert & Oriented x4 to person, place, time, situation. Moves all ext x4 Pt update on day of discharge Please see daily progress note Hospital Course Patient seen and treated for febrile neutropenia. No source was identified. Patient was empirically treated with antibiotics and continued to be monitored. Her counts recovered. She was seen by hematology self treated for DVT with Eliquis. Patient was discharged home follow-up with her in [place] oncologist in [place]. Pt Condition on Discharge: Good Discharge Disposition: Discharge Home Discharge Time: <= 30 minutes Discharge Instructions DIET: Follow Instructions for: As Tolerated, No Restrictions Activities you can perform: Regular-No Restrictions Emerald Storm MD Feb 06, 2017 16:49
== END 2017-02-06 17:37 | disposition home or self-care (01) | DRG 809 ==
LOC: PHED 19:25 → PHEDA 22:27 → PHEDH 02-04 04:13 → PH3A 02-04 08:52
PROVIDERS: ADMIT Hospitalist; ATTEND Hospitalist
DX: D70.3 Neutropenia due to infection (principal); I82.622 Acute embolism and thrombosis of deep veins of left upper extremity; I95.9 Hypotension, unspecified; C50.919 Malignant neoplasm of unspecified site of unspecified female breast; R50.81 Fever presenting with conditions classified elsewhere; R74.0 Nonspecific elevation of levels of transaminase and lactic acid dehydrogenase [LDH]; R00.0 Tachycardia, unspecified; T45.1X5A Adverse effect of antineoplastic and immunosuppressive drugs, initial encounter; R11.2 Nausea with vomiting, unspecified; Z80.3 Family history of malignant neoplasm of breast; Z90.13 Acquired absence of bilateral breasts and nipples
CPT/HCPCS: 71010; 76705; 80048; 80053; 81001; 83605; 84702; 85007; 85025; 85027; 85610; 85730; 87040; 87804; 96361; 96374; 96375; J0692; J1170; J1642; J1650; J2060; J2270; J2405; J2550; J3370; J7030; J7040; Q0169

== ENCOUNTER 2018-01-03 18:35 | Emergency (ER) | payer OTHER ==
[~2018-01-03] VITALS: Ht 157.5 cm; Wt 60.0 kg
[~2018-01-03 18:35] MED LIST changes: +APIX5TAB PO; +CLAR10CA3 PO; -CYCL-36 PO; +IBUP-1129; +LORA-474 PO; +MELA1TAB18 PO; +OXYC1CAP PO; +PROM25TA10 PO; +PROT40TA PO
[2018-01-03 18:43] VITALS: BP 112/77; PULSE 84; RESP 16; TEMP 98; O2SAT 100
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
[2018-01-03] MEDS ORDERED: IBUPROFEN 600 MG TAB PO ONE (22:15)
[2018-01-03] MEDS ORDERED: TRAM50 PO (22:19)
[2018-01-03] MEDS ORDERED: ROBA750T PO (22:19)
== END 2018-01-03 22:41 | disposition home or self-care (01) ==
LOC: NEPD 18:35
DX: S09.90XA Unspecified injury of head, initial encounter (principal); S20.219A Contusion of unspecified front wall of thorax, initial encounter; S46.911A Strain of unspecified muscle, fascia and tendon at shoulder and upper arm level, right arm, initial encounter; S76.011A Strain of muscle, fascia and tendon of right hip, initial encounter; S56.911A Strain of unspecified muscles, fascia and tendons at forearm level, right arm, initial encounter; M54.2 Cervicalgia; R07.89 Other chest pain; V49.40XA Driver injured in collision with unspecified motor vehicles in traffic accident, initial encounter
CPT/HCPCS: 71046; 72040; 72072; 72100; 73060; 73090; 73130; 73502; 99284

== ENCOUNTER 2018-03-10 20:43 | Inpatient (IN) ==
[2018-03-10] MEDS ORDERED: Ibuprofen 600 MG Tablet PO ONE (20:58)
[2018-03-10] MEDS ORDERED: Vancomycin Inj 1,000 MG in Sodium Chlor 0.9% Inj 250 ML IV.SIG STA (20:58)
[2018-03-10] MEDS ORDERED: Aztreonam Inj 2 GM in Sodium Chloride 0.9% Inj 100 ML IV.SIG STA (20:58)
--- NOTE | 2018-03-10 21:18 | ED ---
HPI General Chief Complaint: Fever Stated Complaint: Fever/Chest Pain Time Seen by Provider: 03/10/18 20:58 Source: patient and family Mode of arrival: ambulatory History of Present Illness HPI Narrative: Patient is a 47-year-old female who presents the emergency room with complaints of fever. Patient reports that she has history of breast cancer , Dr. Prince is her plastic surgeon. Patient reports that one year ago, she had bilateral mastectomies. Patient had her expanders removed as well as a hysterectomy 7 weeks ago. Patient went for her follow-up with Dr. Prince today and the PA who saw her express fluid coming out of her incisions under her right breast. Patient reports that for the past few hours, she has been having fevers and chills. Patient did take a Tylenol prior to arrival to the emergency room around 8 PM today. Patient reports that she is having chest pain, denies any cough or congestion, denies any shortness of breath. Patient has no other medical problems except for her breast cancer. Related Data Home Medications Medication Instructions Recorded Confirmed anastrozole 1 mg PO DAILY 03/10/18 03/10/18 lorazepam 1 mg PO BID PRN 03/10/18 03/10/18 promethazine 12.5 mg PO Q4-6H PRN 03/10/18 03/10/18 venlafaxine [Effexor XR] 75 mg PO DAILY 03/10/18 03/10/18 Allergies Allergy/AdvReac Type Severity Reaction Status Date / Time bee venom protein (honey bee) Allergy Severe ENTIRE Verified 03/10/18 21:10 BODY SWELLS penicillin G Allergy Severe HIVES Verified 03/10/18 21:10 ciprofloxacin Allergy Unknown Hives Verified 03/10/18 21:10 Review of Systems ROS: all other systems reviewed are negative [facility] Medical History Medical History Hx of breast cancer (Acute) Hx of hysterectomy (Acute) Surgical History Surgical History Hx of mastectomy (Acute) Social History Social History Substance History: No History of Abuse Second Hand Smoke Exposure: Yes Smoking Status: Never smoker How Often Do You Have a Drink Containing Alcohol: 2 to 4 times a month Recent Travel in [facility] within the Last 8 Weeks: No Recent Out of Country Travel within the Last 8 Weeks: No Immunization History Tetanus Immunization: Unsure Hx Influenza Vaccine This Season: No Exam Narrative Exam Narrative: GENERAL: Moderate distress SKIN: Focused skin assessment warm/dry. HEAD: Atraumatic. Normocephalic. EYES: Pupils equal and round. No scleral icterus. No injection or drainage. ENT: No nasal bleeding or discharge. Mucous membranes pink and moist. NECK: Trachea midline. No JVD. CARDIOVASCULAR: Regular rate and rhythm. No murmur appreciated. There is a incision under her right breast - no obvious drainage RESPIRATORY: No accessory muscle use. Clear to auscultation. Breath sounds equal bilaterally. GASTROINTESTINAL: Abdomen soft, non-tender, nondistended. Hepatic and splenic margins not palpable. MUSCULOSKELETAL: No obvious deformities. No clubbing. No cyanosis. No edema. NEUROLOGICAL: Awake and alert. No obvious cranial nerve deficits. Motor grossly within normal limits. Normal speech. PSYCHIATRIC: Appropriate mood and affect; insight and judgment normal. Course Initial Documented Vital Signs Temperature 100.4 F H 03/10/18 20:54 Pulse Rate 103 H 03/10/18 20:54 Respiratory Rate 24 03/10/18 20:54 Blood Pressure 137/75 03/10/18 20:54 Pulse Oximetry 100 03/10/18 20:54 Last Documented Vital Signs Temperature 100.4 F H 03/10/18 20:54 Pulse Rate 89 03/10/18 22:17 Respiratory Rate 18 03/10/18 22:17 Blood Pressure 124/79 03/10/18 22:17 Pulse Oximetry 100 03/10/18 22:17 Medical Decision Making [facility] Narrative Medical decision making narrative: During the course of the patients emergency department visit, the patients history, examination, and differential diagnosis were reviewed with the patient. The patient was placed on a teletypesetter monitor with oximetry and frequent blood pressure monitoring. The patient had an IV access obtained and blood work sent for analysis. The patient was initially provided with 2 liter IVF, she is tachy and febrile, motrin was ordered. Patient was ordered IV azactam, flagyl as well as vancomycin The patients laboratory studies were reviewed wbc 8.8, lactic acid 2.6 CT of the chest shows a 4 mm noncalcified nodule within the posterior aspect of the right lobe which is indeterminate, atelectasis. CT of the abdomen and pelvis shows no acute intra-abdominal process. Patient with SIRS criteria, patient will require admission to the hospital. Patient notified of ct findings including incidental findings of pulmonary nodules - she was given a copy of her studies as she understands that she will need repeat ct for follow up Case reviewed with Rima HOUSER who accepts pt to service under Dr. Lofton Medical Screen Exam Complete: Yes Emergency Medical Condition: Yes Differential Diagnosis Differential Diagnosis: Pneumonia, abscess, cellulitis Medical Records Medical records reviewed: Yes I reviewed the patient's medical records. Lab Data Lab results reviewed: Yes I reviewed the patient's lab results. Result diagrams: 03/10/18 21:00 03/10/18 21:00 Lab Results 03/10/18 03/10/18 03/10/18 Range/Units 21:00 21:00 21:00 WBC 8.8 (4.0-11.0) th/mm3 RBC 4.45 (4.00-5.30) mil/mm3 Hgb 14.1 (11.6-15.3) gm/dL Hct 41.8 (35.0-46.0) % MCV 93.8 (80.0-100.0) fL MCH 31.6 (27.0-34.0) pg MCHC 33.7 (32.0-36.0) % RDW 13.3 (11.6-17.2) % Plt Count 214 (150-450) th/mm3 MPV 7.7 (7.0-11.0) fL Neut % (Auto) 68.2 (16.0-70.0) % Lymph % (Auto) 21.3 (9.0-44.0) % [place] % (Auto) 9.2 H (0.0-8.0) % Eos % (Auto) 0.8 (0.0-4.0) % Baso % (Auto) 0.5 (0.0-2.0) % Neut # (Auto) 6.0 (1.8-7.7) th/mm3 Lymph # (Auto) 1.9 (1.0-4.8) th/mm3 [place] # (Auto) 0.8 (0.0-0.9) th/mm3 Eos # (Auto) 0.1 (0.0-0.4) th/mm3 Baso # (Auto) 0.0 (0.0-0.2) th/mm3 WBC Differential . Differential Comment Auto diff final PT 10.2 (9.8-11.6) sec INR 1.0 Ratio APTT 30.5 H (24.3-30.1) sec Sodium (136-145) meq/L Potassium (3.5-5.1) meq/L Chloride (98-107) meq/L Carbon Dioxide (21.0-32.0) meq/L Anion Gap (5-15) meq/L BUN (7-18) mg/dL Creatinine (0.50-1.00) mg/dL Estimated GFR (>89) mL/min Random Glucose (74-106) mg/dL Lactic Acid (0.4-2.0) mmol/L Calcium (8.5-10.1) mg/dL Magnesium 1.8 (1.5-2.5) mg/dL Total Bilirubin (0.2-1.0) mg/dL AST (15-37) U/L ALT (10-53) U/L Alkaline Phosphatase (45-117) U/L Total Creatine Kinase 71 (26-192) U/L Troponin I Less than 0.02 L (0.02-0.05) ng/mL Total Protein (6.4-8.2) g/dL Albumin (3.4-5.0) g/dL Urine Color (Yellw/Straw) Urine Clarity (Clear) Urine pH (5.0-8.5) Ur Specific [place] (1.002-1.035) Urine Protein (Neg-Trace) mg/dL Urine Glucose (UA) (Negative) mg/dL Urine Ketones (Negative) mg/dL Urine Occult Blood (Negative) Urine Nitrate (Negative) Urine Bilirubin (Negative) Urine Urobilinogen (Less than 2) mg/dL Ur Leukocyte Esterase (Negative) Urine RBC (0-3) /hpf Urine WBC (0-5) /hpf Ur Squamous Epith Cells (0-5) /hpf Urine Mucus (Occasional) /lpf Micro UA Comment Ur Microscopic Review Urine Culture Comments 03/10/18 03/10/18 03/10/18 Range/Units 21:00 21:05 22:14 WBC (4.0-11.0) th/mm3 RBC (4.00-5.30) mil/mm3 Hgb (11.6-15.3) gm/dL Hct (35.0-46.0) % MCV (80.0-100.0) fL MCH (27.0-34.0) pg MCHC (32.0-36.0) % RDW (11.6-17.2) % Plt Count (150-450) th/mm3 MPV (7.0-11.0) fL Neut % (Auto) (16.0-70.0) % Lymph % (Auto) (9.0-44.0) % [place] % (Auto) (0.0-8.0) % Eos % (Auto) (0.0-4.0) % Baso % (Auto) (0.0-2.0) % Neut # (Auto) (1.8-7.7) th/mm3 Lymph # (Auto) (1.0-4.8) th/mm3 [place] # (Auto) (0.0-0.9) th/mm3 Eos # (Auto) (0.0-0.4) th/mm3 Baso # (Auto) (0.0-0.2) th/mm3 WBC Differential Differential Comment PT (9.8-11.6) sec INR Ratio APTT (24.3-30.1) sec Sodium 137 (136-145) meq/L Potassium 3.9 (3.5-5.1) meq/L Chloride 104 (98-107) meq/L Carbon Dioxide 20.2 L (21.0-32.0) meq/L Anion Gap 13 (5-15) meq/L BUN 15 (7-18) mg/dL Creatinine 0.96 (0.50-1.00) mg/dL Estimated GFR 63 L (>89) mL/min Random Glucose 97 (74-106) mg/dL Lactic Acid 2.6 H (0.4-2.0) mmol/L Calcium 9.0 (8.5-10.1) mg/dL Magnesium (1.5-2.5) mg/dL Total Bilirubin 0.5 (0.2-1.0) mg/dL AST 30 (15-37) U/L ALT 44 (10-53) U/L Alkaline Phosphatase 113 (45-117) U/L Total Creatine Kinase (26-192) U/L Troponin I (0.02-0.05) ng/mL Total Protein 7.6 (6.4-8.2) g/dL Albumin 3.8 (3.4-5.0) g/dL Urine Color Yellow (Yellw/Straw) Urine Clarity Clear (Clear) Urine pH 8.0 (5.0-8.5) Ur Specific [place] 1.013 (1.002-1.035) Urine Protein Negative (Neg-Trace) mg/dL Urine Glucose (UA) Negative (Negative) mg/dL Urine Ketones Negative (Negative) mg/dL Urine Occult Blood Negative (Negative) Urine Nitrate Negative (Negative) Urine Bilirubin Negative (Negative) Urine Urobilinogen Less than 2 (Less than 2) mg/dL Ur Leukocyte Esterase Negative (Negative) Urine RBC 8 H (0-3) /hpf Urine WBC 2 (0-5) /hpf Ur Squamous Epith Cells <1 (0-5) /hpf Urine Mucus Few H (Occasional) /lpf Micro UA Comment Culture not ind Ur Microscopic Review Not Reportable Urine Culture Comments Culture not ind Imaging Data Attestation: I personally reviewed and interpreted this imaging study as follows : Radiologist's impression: Chest X-Ray 03/10/18 20:59 CONCLUSION: Negative examination. Abdomen/Pelvis CT 03/10/18 21:22 CONCLUSION: 1. Negative CT Abdomen and Pelvis with contrast. Chest CT 03/10/18 21:22 CONCLUSION: 1. Minimal scattered atelectatic changes within the posterior lungs bilaterally. 2. 4 mm noncalcified nodule within the posterior aspect of the right upper lobe which is indeterminate. Follow-up CT of the chest in 6 months would be helpful for further evaluation. Discharge Plan Discharge Disposition Patient Disposition: 30 Still Patient Discharge Condition Condition: Serious Discharge Details Diagnosis: SIRS (systemic inflammatory response syndrome) Physicians Team ED Provider: Iliana Jennings Primary Care Provider: UNKNOWN, Rxs /Orders / Referrals /Forms Prescriptions: No Action anastrozole 1 mg Tablet 1 mg PO DAILY RF: 0 venlafaxine [Effexor XR] 75 mg Capsule,Extended Release 24hr 75 mg PO DAILY RF: 0 promethazine 12.5 mg Tablet 12.5 mg PO Q4-6H PRN (Reason: Vomiting) RF: 0 lorazepam 1 mg Tablet 1 mg PO BID PRN (Reason: Anxiety) RF: 0 Status ED Status: With Doctor
[2018-03-10 21:24] LABS: Baso % (Auto) 0.5 % (0.0-2.0); Eos # (Auto) 0.1 th/mm3 (0.0-0.4); Eos % (Auto) 0.8 % (0.0-4.0); Hematocrit 41.8 % (35.0-46.0); Hemoglobin 14.1 gm/dL (11.6-15.3); Lymph # (Auto) 1.9 th/mm3 (1.0-4.8); Lymph % (Auto) 21.3 % (9.0-44.0); Mean Corpuscular HGB Conc 33.7 % (32.0-36.0); Mean Corpuscular Hemoglobin 31.6 pg (27.0-34.0); Mean Corpuscular Volume 93.8 fL (80.0-100.0); Mean Platelet Volume 7.7 fL (7.0-11.0); Mono # (Auto) 0.8 th/mm3 (0.0-0.9); Mono % (Auto) 9.2 % (0.0-8.0); Neut % (Auto) 68.2 % (16.0-70.0); Platelet Count 214 th/mm3 (150-450); Red Blood Count 4.45 mil/mm3 (4.00-5.30); Red Cell Distribution Width 13.3 % (11.6-17.2); White Blood Count 8.8 th/mm3 (4.0-11.0)
[2018-03-10] MEDS: Sod Chloride 0.9% Inj 1,000 ML IV.SIG SCH ×2 (21:24→21:41)
[2018-03-10 21:38] LABS: Alanine Aminotransferase 44 U/L (10-53); Albumin 3.8 g/dL (3.4-5.0); Anion Gap 13 meq/L (5-15); Aspartate Aminotransferase 30 U/L (15-37); Blood Urea Nitrogen 15 mg/dL (7-18); Carbon Dioxide 20.2 meq/L (21.0-32.0); Chloride 104 meq/L (98-107); Glomerular Filtration Rate 63 mL/min (>89); Glucose,Random 97 mg/dL (74-106); Potassium 3.9 meq/L (3.5-5.1); Sodium 137 meq/L (136-145)
[2018-03-10 21:39] LABS: Magnesium 1.8 mg/dL (1.5-2.5)
--- NOTE | 2018-03-10 21:40 | XR ---
EXAM DATE: 03/10/2018 9:15 PM EDT AGE/SEX: 47 years / Female INDICATIONS: Fever with right sided chest pain. CLINICAL DATA: This is the patient's initial encounter. Patient reports that signs and symptoms have been present for 1 day and indicates a pain score of 6/10. MEDICAL/SURGICAL HISTORY: . Carcinoma, breast. . Infusaport placed and removed. COMPARISON: . FINDINGS: A single AP view of the chest demonstrates the lungs to be symmetrically aerated without evidence of mass, infiltrate or effusion. The cardiomediastinal contours are unremarkable. Osseous structures a re intact. CONCLUSION: Negative examination. Electronically signed by: Venancio Thorpe MD 03/10/2018 9:39 PM EDT
[2018-03-10 21:41] LABS: Alkaline Phosphatase 113 U/L (45-117); Total Protein 7.6 g/dL (6.4-8.2)
[2018-03-10 21:43] LABS: Creatine Kinase 71 U/L (26-192)
[2018-03-10 21:44] LABS: Activated Partial Thrombo Time 30.5 sec (24.3-30.1); Prothrombin Time 10.2 sec (9.8-11.6)
--- NOTE | 2018-03-10 22:13 | CT ---
EXAM DATE: 03/10/2018 10:04 PM EDT AGE/SEX: 47 years / Female INDICATIONS: Fever. CLINICAL DATA: This is the patient's initial encounter. Patient reports that signs and symptoms have been present for 1 day and indicates a pain score of 8/10. MEDICAL/SURGICAL HISTORY: Carcinoma, breast. Mastectomy, bilateral. Hysterectomy. ORAL CONTRAST: No oral contrast ingested. RADIATION DOSE: 5.23 CTDI (mGy) ; Combined studies COMPARISON: . TECHNIQUE: Multiple contiguous axial images were obtained through the abdomen and pelvis following b olus infusion of 96 ml Omnipaque 350 (iohexol) nonionic water-soluble contrast as a cumulative dose for multiple exams. No oral contrast ingested. Using automated exposure control and adjustment of t he mA and/or kV according to patient size, radiation dose was kept as low as reasonably achievable to obtain optimal diagnostic quality images. DICOM format image data is available electronically for r eview and comparison. FINDINGS: Lower Lungs: The visualized lower lungs are clear. Liver: The liver has a homogeneous density without space-occupying lesion. There is no dilation of th e biliary tree. Spleen: Homogeneous density without enlargement. Pancreas: Unremarkable without mass or calcification. Kidneys: Normal in size and shape. No evidence of mass or hydronephrosis. Adrenal Glands: Unremarkable. Aorta: The aorta and proximal iliac vessels are grossly unremarkable without aneurysmal dilation. Bowel/Mesentery: The bowel loops are grossly unremarkable. The cecum and sigmoid colon have a normal configuration. Abdominal Wall: Intact. Retroperitoneum: No evidence of adenopathy in the retrocrural, para-aortic, or deep pelvic regions. Bladder: Contours are smooth. Reproductive Organs: No abnormal masses or calcifications seen. Inguinal: The inguinal region is unremarkable without evidence of adenopathy. Bony Structures: Unremarkable. CONCLUSION: 1. Negative CT Abdomen and Pelvis with contrast. Electronically signed by: Venancio Thorpe MD 03/10/2018 10:12 PM EDT
--- NOTE | 2018-03-10 22:19 | CT ---
EXAM DATE: 03/10/2018 10:04 PM EDT AGE/SEX: 47 years / Female INDICATIONS: Fever and cough. CLINICAL DATA: This is the patient's initial encounter. Patient reports that signs and symptoms have been present for 1 day and indicates a pain score of 8/10. MEDICAL/SURGICAL HISTORY: Carcinoma, breast. Mastectomy, bilateral. Hysterectomy. RADIATION DOSE: 5.23 CTDI (mGy) ; Combined studies COMPARISON: . TECHNIQUE: Multiple contiguous axial images were obtained through the chest during bolus infusion of 96 ml Omnipaque 350 (iohexol) nonionic water-soluble contrast as a cumulative dose for multiple exa ms. Images were obtained in suspended respiration using multiple row detector helical technique. U sing automated exposure control and adjustment of the mA and/or kV according to patient size, radiati on dose was kept as low as reasonably achievable to obtain optimal diagnostic quality images. DICOM format image data is available electronically for review and comparison. FINDINGS: Lungs: The lungs are symmetrically aerated. There is a 4 mm noncalcified nodule within the posterior aspect of the right upper lobe which is indeterminate. Follow-up CT of the chest in 6 months would b e helpful for further evaluation. Minimal scattered atelectatic changes are noted within the posterio r lungs bilaterally. Mediastinum: There is good visualization of the great vessels of the middle mediastinum. No evidenc e of mediastinal or hilar adenopathy/mass. Pleurae: No evidence of focal thickening or pleural effusion. Axillae: Unremarkable. Bony Structures: Unremarkable. Miscellaneous: The examination was extended to include the upper abdomen, and both adrenal glands ar e normal in size and configuration. CONCLUSION: 1. Minimal scattered atelectatic changes within the posterior lungs bilaterally. 2. 4 mm noncalcified nodule within the posterior aspect of the right upper lobe which is indetermina te. Follow-up CT of the chest in 6 months would be helpful for further evaluation. Electronically signed by: Venancio Thorpe MD 03/10/2018 10:18 PM EDT
[2018-03-10 22:43] LABS: Bilirubin,Urine Negative (Negative); Clarity,Urine Clear (Clear); Color,Urine Yellow (Yellw/Straw); Glucose,Urine (UA) Negative (Negative); Leukocyte Esterase,Urine Negative (Negative); Mucus,Urine Few /lpf (Occasional); Nitrite,Urine Negative (Negative); Specific Gravity,Urine 1.013 (1.002-1.035); Squamous Epithelial Cell,Urine <1 /hpf (0-5)
[2018-03-10] MEDS ORDERED: Acetaminophen 325 MG Tablet PO PRN (22:49)
[2018-03-10] MEDS ORDERED: Vancomycin Consult Pharmacy OTHER PRN (22:50)
[2018-03-10] MEDS ORDERED: Vancomycin Inj 500 MG in Sodium Chlor 0.9% Inj 100 ML IV.SIG ONE (23:59)
--- NOTE | 2018-03-11 00:11 | P.HPIM ---
History of Present Illness Primary Care Physician: UNKNOWN History of Present Illness: 47 y/o female with a history of breast cancer presented to the ED with complaints of a fever and not feeling well. Patient states she has had on and off fevers today. She had bilateral mastectomies one year ago and today she went to her plastic surgeons office today for evaluation of her incision to her right breast. The PA who saw her expressed fluid out of her incision. The patient is unsure of the color of the fluid expressed. She is complaining of intermittent, throbbing pain, 5/10, worse with touch, and with no radiation or associated symptoms. She also is complaining of shortness of breath that is better now that she is less feverish. She denies any nausea, vomiting, dizziness or headaches. [facility] - History History Provided By: Patient - Medical History Medical History: Medical History (Last Reviewed 03/10/18 @ 21:17 by Iliana Jennings) Hx of breast cancer Hx of hysterectomy - Surgical History Surgical History: Surgical History (Last Reviewed 03/10/18 @ 21:17 by Iliana Jennings) Hx of mastectomy - Family History Family History: Family History (Last Updated 03/10/18 @ 23:59 by ÁNGEL Rea) Other Family history unknown - Tobacco History Second Hand Smoke Exposure: Yes Smoking Status: Never smoker - Alcohol History How Often Do You Have a Drink Containing Alcohol: 2 to 4 times a month - Substance Use History Substance History: No History of Abuse - Travel History Recent Travel in the [place] Within the Last 8 Weeks: No Recent Travel Out of the Country Within the Last 8 Weeks: No - Immunization History Tetanus Immunization: Unsure Hx Influenza Vaccine This Season: No Medications and Allergies Active Medications: Active Medications Acetaminophen (Tylenol) 650 mg PO Q4H PRN PRN Reason: Temp > 100.4 Anastrozole (Arimidex) 1 mg PO HS SILVIA Sodium Chloride (Ns Inj) 1,000 mls @ 0 mls/hr IV.SIG BOLUS SILVIA Stop: 03/11/18 21:16 Last Admin: 03/10/18 21:41 Dose: 1,000 mls/hr Sodium Chloride (Ns Inj) 1,000 mls @ 100 mls/hr IV.CONT .Q10H SILVIA Aztreonam 1,000 mg/ Sodium (Chloride) 100 mls @ 200 mls/hr IV.SIG Q12H SILVIA Vancomycin HCl 500 mg/ Sodium (Chloride) 100 mls @ 200 mls/hr IV.SIG ONCE ONE Stop: 03/11/18 00:28 Lorazepam (Ativan) 1 mg PO BID PRN PRN Reason: Anxiety Non-Formulary Medication (Promethazine [Promethazine]) 12.5 mg PO Q6HR PRN PRN Reason: Vomiting Pharmacy Profile Note (Vancomycin Consult Pharmacy) 1 each OTHER UNSCH PRN PRN Reason: Pharmacy to dose Venlafaxine HCl (Effexor Xr) 75 mg PO [facility] Allergies Allergy/AdvReac Type Severity Reaction Status Date / Time bee venom protein (honey bee) Allergy Severe ENTIRE Verified 03/10/18 21:10 BODY SWELLS penicillin G Allergy Severe HIVES Verified 03/10/18 21:10 ciprofloxacin Allergy Unknown Hives Verified 03/10/18 21:10 Home Medications Medication Instructions Recorded Confirmed Type anastrozole 1 mg PO DAILY 03/10/18 03/10/18 History lorazepam 1 mg PO BID PRN 03/10/18 03/10/18 History promethazine 12.5 mg PO Q4-6H PRN 03/10/18 03/10/18 History venlafaxine [Effexor XR] 75 mg PO DAILY 03/10/18 03/10/18 History Exam Vital signs: Vital Signs 03/10/18 20:54 03/10/18 21:04 03/10/18 22:17 Temperature 100.4 F H Pulse Rate 103 H 89 Respiratory Rate 24 18 Blood Pressure 137/75 124/79 Pulse Oximetry 100 100 100 Intake & Output 03/10/18 03/10/18 03/11/18 06:59 18:59 06:59 Intake Total 1000 / 1000 Balance 1000 / 1000 Weight 63.503 kg Intake: IV 1000 / 1000 NS Inj 1,000 ML @ Wide Open IV. 1000 / 1000 SIG BOLUS [facility] Rx#:[id number] Narrative: GENERAL: This is a well-nourished, well-developed patient, in no apparent distress. SKIN: right breast lesion with a yellowish wound bed with serous drainage CARDIOVASCULAR: Regular rate and rhythm without murmurs, gallops, or rubs. RESPIRATORY: Clear to auscultation. Breath sounds equal bilaterally. No wheezes , rales, or rhonchi. GASTROINTESTINAL: Abdomen soft, non-tender, nondistended. Normal active bowel sounds MUSCULOSKELETAL: Extremities without clubbing, cyanosis, or edema. NEURO: Alert & Oriented x4 to person, place, time, situation. Moves all ext x4 Results - Labs CBC & Chem 7: 03/10/18 21:00 03/10/18 21:00 Labs: Short CBC 03/10/18 Range/Units 21:00 WBC 8.8 (4.0-11.0) th/mm3 Hgb 14.1 (11.6-15.3) gm/dL Hct 41.8 (35.0-46.0) % Plt Count 214 (150-450) th/mm3 BMP 03/10/18 21:00 Sodium 137 Potassium 3.9 Chloride 104 Carbon Dioxide 20.2 L BUN 15 Creatinine 0.96 Calcium 9.0 Cardiac Enzymes 03/10/18 Range/Units 21:00 Total Creatine Kinase 71 (26-192) U/L Troponin I Less than 0.02 L (0.02-0.05) ng/mL Liver Function 03/10/18 Range/Units 21:00 Total Bilirubin 0.5 (0.2-1.0) mg/dL AST 30 (15-37) U/L ALT 44 (10-53) U/L Alkaline Phosphatase 113 (45-117) U/L Albumin 3.8 (3.4-5.0) g/dL Urine 03/10/18 Range/Units 22:14 Urine Color Yellow (Yellw/Straw) Urine Clarity Clear (Clear) Urine pH 8.0 (5.0-8.5) Ur Specific [place] 1.013 (1.002-1.035) Urine Protein Negative (Neg-Trace) mg/dL Urine Glucose (UA) Negative (Negative) mg/dL - Imaging Impressions Chest X-Ray 03/10/18 20:59 CONCLUSION: Negative examination. Abdomen/Pelvis CT 03/10/18 21:22 CONCLUSION: 1. Negative CT Abdomen and Pelvis with contrast. Chest CT 03/10/18 21:22 CONCLUSION: 1. Minimal scattered atelectatic changes within the posterior lungs bilaterally. 2. 4 mm noncalcified nodule within the posterior aspect of the right upper lobe which is indeterminate. Follow-up CT of the chest in 6 months would be helpful for further evaluation. Caprini VTE Risk Assessment Caprini VTE Risk Assessment: Moderate/High Risk (score >= 2) Caprini Risk Assessment Model: Point Value = 1 Point Value = 2 Point Value = 3 Point Value = 5 Age 41-60 Minor surgery BMI > 25 kg/m2 Swollen legs Varicose veins or History of unexplained or recurrent spontaneous Oral contraceptives or hormone replacement Sepsis (< 1 month) Serious lung disease, including pneumonia (< 1 month) Abnormal pulmonary function Acute myocardial infarction Congestive heart failure (< 1 month) History of inflammatory bowel disease Medical patient at bed rest Age 61-74 Arthroscopic surgery Major open surgery (> 45 min) Laparoscopic surgery (> 45 min) Malignancy Confined to bed (> 72 hours) Immobilizing plaster cast Central venous access Age >= 75 History of VTE Family history of VTE Factor V Leiden Prothrombin [id number] Lupus anticoagulant Anticardiolipin antibodies Elevated serum homocysteine Heparin-induced thrombocytopenia Other congenital or acquired thrombophilia Stroke (< 1 month) Elective arthroplasty Hip, pelvis, or leg fracture Acute spinal cord injury (< 1 month) Prophylaxis Regimen: Total Risk Factor Score Risk Level Prophylaxis Regimen 0-1 Low Early ambulation 2 Moderate Order ONE of the following: *Sequential Compression Device (SCD) *Heparin 5000 units SQ BID 3-4 Higher Order ONE of the following medications: *Heparin 5000 units SQ TID *Enoxaparin/Lovenox 40 mg SQ daily (WT < 150 kg, CrCl > 30 mL/min) *Enoxaparin/Lovenox 30 mg SQ daily (WT < 150 kg, CrCl > 10-29 mL/min) *Enoxaparin/Lovenox 30 mg SQ BID (WT < 150 kg, CrCl > 30 mL/min) AND/OR *Sequential Compression Device (SCD) 5 or more Highest Order ONE of the following medications: *Heparin 5000 units SQ TID (Preferred with Epidurals) *Enoxaparin/Lovenox 40 mg SQ daily (WT < 150 kg, CrCl > 30 mL/min) *Enoxaparin/Lovenox 30 mg SQ daily (WT < 150 kg, CrCl > 10-29 mL/min) *Enoxaparin/Lovenox 30 mg SQ BID (WT < 150 kg, CrCl > 30 mL/min) AND *Sequential Compression Device (SCD) Assessment and Plan - Plan 47 y/o female with a history of breast cancer presented to the ED with complaints of a fever and not feeling well. SIRS, fever 100.4, HR 103, suspect right breast wound infection, with lactic acidosis Lactic acid 2.4, UA negative -Consult to wound care nurse -Wound culture ordered and blood culture pending -IV antibiotics aztreonam and vancomycin -Labs in AM -Repeat lactic -Cont IVF -Pain management with PO Castile Lung nodule, in patient with history of breast cancer Chest CT reviewed and shows a 4 mm noncalcified nodule within the posterior aspect of the right upper lobe -Given patients history she is requesting to see an oncologist -CT recommends follow up in 6 months Depression, chronic -Resume home medications DVT prophylaxis: Lovenox Discussed Condition With: Patient and RN
[2018-03-11] MEDS: Anastrozole 1 MG Tablet PO SCH ×2 (00:20→21:50)
[2018-03-11] MEDS: Enoxaparin Inj 40 MG/0.4 ML Syringe SQ SCH ×2 (00:39→08:07)
[2018-03-11] MEDS ORDERED: Venlafaxine XR 75 MG Capsule PO ONE (01:33)
[2018-03-11] MEDS ORDERED: traZODone 50 MG Tablet PO ONE (01:34)
[2018-03-11 06:44] LABS: Baso % (Auto) 0.3 % (0.0-2.0); Eos # (Auto) 0.1 th/mm3 (0.0-0.4); Eos % (Auto) 0.9 % (0.0-4.0); Hematocrit 36.8 % (35.0-46.0); Hemoglobin 12.6 gm/dL (11.6-15.3); Lymph # (Auto) 1.3 th/mm3 (1.0-4.8); Mean Corpuscular HGB Conc 34.2 % (32.0-36.0); Mean Corpuscular Hemoglobin 32.6 pg (27.0-34.0); Mean Corpuscular Volume 95.2 fL (80.0-100.0); Mean Platelet Volume 7.7 fL (7.0-11.0); Mono # (Auto) 0.8 th/mm3 (0.0-0.9); Mono % (Auto) 11.8 % (0.0-8.0); Neut # (Auto) 4.3 th/mm3 (1.8-7.7); Platelet Count 161 th/mm3 (150-450); Red Blood Count 3.86 mil/mm3 (4.00-5.30); Red Cell Distribution Width 13.5 % (11.6-17.2); White Blood Count 6.5 th/mm3 (4.0-11.0)
[2018-03-11 07:06] LABS: Calcium 7.3 mg/dL (8.5-10.1); Carbon Dioxide 23.2 meq/L (21.0-32.0); Potassium 3.9 meq/L (3.5-5.1)
[2018-03-11 07:31] LABS: Total Protein 5.4 g/dL (6.4-8.2)
--- NOTE | 2018-03-11 11:53 | P.PN ---
Subjective Interval history: Follow-up SIRS/right breast wound purulent discharge/history of breast cancer March 11, 2018-patient seen and examined, currently afebrile .T-max 100.4 .right breast throbbing and pain Physical Exam Vital signs: Vital Signs 03/10/18 20:54 03/10/18 21:04 03/10/18 22:17 Temperature 100.4 F H Pulse Rate 103 H 89 Respiratory Rate 24 18 Blood Pressure 137/75 124/79 Pulse Oximetry 100 100 100 03/11/18 00:37 03/11/18 02:58 03/11/18 03:00 Temperature 98.9 F Pulse Rate 93 H 84 92 H Respiratory Rate 18 18 Blood Pressure 94/61 L 109/75 Pulse Oximetry 100 100 03/11/18 03:10 03/11/18 07:00 03/11/18 07:18 Temperature Pulse Rate 89 Respiratory Rate 18 Blood Pressure Pulse Oximetry 95 03/11/18 08:25 03/11/18 08:27 03/11/18 09:31 Temperature 98.2 F 98.1 F Pulse Rate 89 Respiratory Rate 20 Blood Pressure 89/56 L 104/48 L Pulse Oximetry 98 98 Intake & Output 03/10/18 03/11/18 03/11/18 18:59 06:59 18:59 Intake Total 2670 / 2670 100 / 100 Output Total 1200 / 1200 Balance 1470 / 1470 100 / 100 Weight 63.7 kg Intake: IV 2550 / 2550 100 / 100 Azactam Inj 1,000 MG In NS Inj 100 / 100 100 ML @ 200 mls/hr IV.SIG Q12H SILVIA Rx#:[id number] Azactam Inj 2 GM In NS Inj 100 100 / 100 ML @ 200 mls/hr IV.SIG STAT STA Rx#:[id number] NS Inj 1,000 ML @ Wide Open IV. 1999 SIG BOLUS SILVIA Rx#:[id number] Vancomycin Inj 1,000 MG In NS 250 / 250 Inj 250 ML @ 250 mls/hr IV.SIG STAT STA Rx#:[id number] Vancomycin Inj 500 MG In NS Inj 100 / 100 100 ML @ 200 mls/hr IV.SIG ONCE ONE Rx#:[id number] Flagyl 500 MG Inj 100 ML @ 100 100 / 100 mls/hr IV.SIG STAT STA Rx#: [id number] Oral 120 / 120 Output: Urine 1200 / 1200 Narrative: GENERAL: NAD SKIN: Warm and dry. HEAD: Normocephalic. EYES: No scleral icterus. No injection or drainage. NECK: Supple, trachea midline. No JVD or lymphadenopathy. CARDIOVASCULAR: Regular rate and rhythm without murmurs, gallops, or rubs. RESPIRATORY: Breath sounds equal bilaterally. No accessory muscle use. Breast exam: This was performed in the presence of the nurse. Right breast with dressing over with surrounding erythema and slightly tender to palpation GASTROINTESTINAL: Abdomen soft, non-tender, nondistended. MUSCULOSKELETAL: No cyanosis, or edema. BACK: Nontender without obvious deformity. No CVA tenderness. Results - Labs CBC & Chem 7: 03/11/18 05:46 03/11/18 05:46 Laboratory Results - last 24 hr 03/10/18 03/10/18 03/10/18 21:00 21:00 21:00 WBC 8.8 RBC 4.45 Hgb 14.1 Hct 41.8 MCV 93.8 MCH 31.6 MCHC 33.7 RDW 13.3 Plt Count 214 MPV 7.7 Neut % (Auto) 68.2 Lymph % (Auto) 21.3 Gates % (Auto) 9.2 H Eos % (Auto) 0.8 Baso % (Auto) 0.5 Neut # (Auto) 6.0 Lymph # (Auto) 1.9 Gates # (Auto) 0.8 Eos # (Auto) 0.1 Baso # (Auto) 0.0 WBC Differential . Differential Comment Auto diff final PT 10.2 INR 1.0 APTT 30.5 H Sodium Potassium Chloride Carbon Dioxide Anion Gap BUN Creatinine Estimated GFR Random Glucose Lactic Acid Calcium Prot Corrected Calcium Magnesium 1.8 Total Bilirubin AST ALT Alkaline Phosphatase Total Creatine Kinase 71 Troponin I Less than 0.02 L Total Protein Albumin Urine Color Urine Clarity Urine pH Ur Specific Kipling Urine Protein Urine Glucose (UA) Urine Ketones Urine Occult Blood Urine Nitrate Urine Bilirubin Urine Urobilinogen Ur Leukocyte Esterase Urine RBC Urine WBC Ur Squamous Epith Cells Urine Mucus Micro UA Comment Ur Microscopic Review Urine Culture Comments 03/10/18 03/10/18 03/10/18 21:00 21:05 22:14 WBC RBC Hgb Hct MCV MCH MCHC RDW Plt Count MPV Neut % (Auto) Lymph % (Auto) Gates % (Auto) Eos % (Auto) Baso % (Auto) Neut # (Auto) Lymph # (Auto) Gates # (Auto) Eos # (Auto) Baso # (Auto) WBC Differential Differential Comment PT INR APTT Sodium 137 Potassium 3.9 Chloride 104 Carbon Dioxide 20.2 L Anion Gap 13 BUN 15 Creatinine 0.96 Estimated GFR 63 L Random Glucose 97 Lactic Acid 2.6 H Calcium 9.0 Prot Corrected Calcium Magnesium Total Bilirubin 0.5 AST 30 ALT 44 Alkaline Phosphatase 113 Total Creatine Kinase Troponin I Total Protein 7.6 Albumin 3.8 Urine Color Yellow Urine Clarity Clear Urine pH 8.0 Ur Specific Kipling 1.013 Urine Protein Negative Urine Glucose (UA) Negative Urine Ketones Negative Urine Occult Blood Negative Urine Nitrate Negative Urine Bilirubin Negative Urine Urobilinogen Less than 2 Ur Leukocyte Esterase Negative Urine RBC 8 H Urine WBC 2 Ur Squamous Epith Cells <1 Urine Mucus Few H Micro UA Comment Culture not ind Ur Microscopic Review Not Reportable Urine Culture Comments Culture not ind 03/11/18 03/11/18 03/11/18 00:09 05:46 05:46 WBC 6.5 RBC 3.86 L Hgb 12.6 Hct 36.8 MCV 95.2 MCH 32.6 MCHC 34.2 RDW 13.5 Plt Count 161 MPV 7.7 Neut % (Auto) 67.0 Lymph % (Auto) 20.0 Gates % (Auto) 11.8 H Eos % (Auto) 0.9 Baso % (Auto) 0.3 Neut # (Auto) 4.3 Lymph # (Auto) 1.3 Gates # (Auto) 0.8 Eos # (Auto) 0.1 Baso # (Auto) 0.0 WBC Differential . Differential Comment Auto diff final PT INR APTT Sodium 147 H D Potassium 3.9 Chloride 115 H D Carbon Dioxide 23.2 Anion Gap 9 BUN 13 Creatinine 0.72 Estimated GFR 88 L Random Glucose 93 Lactic Acid 0.7 Calcium 7.3 L* D Prot Corrected Calcium 8.2 L Magnesium Total Bilirubin AST ALT Alkaline Phosphatase Total Creatine Kinase Troponin I Total Protein 5.4 L D Albumin Urine Color Urine Clarity Urine pH Ur Specific Kipling Urine Protein Urine Glucose (UA) Urine Ketones Urine Occult Blood Urine Nitrate Urine Bilirubin Urine Urobilinogen Ur Leukocyte Esterase Urine RBC Urine WBC Ur Squamous Epith Cells Urine Mucus Micro UA Comment Ur Microscopic Review Urine Culture Comments Microbiology 03/10/18 21:00 Blood - Peripheral Aerobic Blood Culture - Preliminary No growth in 1 day 03/10/18 21:00 Blood - Peripheral Anaerobic Blood Culture - Preliminary No growth in 1 day 03/10/18 21:05 Blood - Peripheral Aerobic Blood Culture - Preliminary No growth in 1 day 03/10/18 21:05 Blood - Peripheral Anaerobic Blood Culture - Preliminary No growth in 1 day 03/10/18 23:59 Abscess - Breast Gram Stain - Final - Imaging Impressions Chest X-Ray 03/10/18 20:59 CONCLUSION: Negative examination. Abdomen/Pelvis CT 03/10/18 21:22 CONCLUSION: 1. Negative CT Abdomen and Pelvis with contrast. Chest CT 03/10/18 21:22 CONCLUSION: 1. Minimal scattered atelectatic changes within the posterior lungs bilaterally. 2. 4 mm noncalcified nodule within the posterior aspect of the right upper lobe which is indeterminate. Follow-up CT of the chest in 6 months would be helpful for further evaluation. Assessment and Plan - Plan 47 y/o female with SIRS: suspect right breast wound infection -Continue IV antibiotics aztreonam and vancomycin pending wound and culture report Wound care nurse consultation pending Continue pain management accordingly Lactic acidosis -Resolved, therefore will discontinue IV fluid hydration Lung nodule, in patient with history of breast cancer Chest CT reviewed and shows a 4 mm noncalcified nodule within the posterior aspect of the right upper lobe -Oncology consultation pending -CT recommends follow up in 6 months History of breast cancer -Continue with Arimidex Depression, chronic -Continue home medications DVT prophylaxis: Lovenox
[2018-03-11] MEDS: Vancomycin Inj 1,000 MG in Sodium Chlor 0.9% Inj 250 ML IV.SIG SCH (12:22)
[2018-03-11] MEDS: Sod Chloride 0.9% Inj 1,000 ML IV.CONT SCH ×2 (12:23)
--- NOTE | 2018-03-11 13:40 | P.PNWCN ---
Wound Care Nurse Consult Description: Wound consult ordered by for wound management. Communicated with: Zuleima PAULA, Recommendation: 1. Cleanse right breast wound with normal saline pat dry. 2. skin prep periwound ,Cut Maxorb AG into single strip gentle pack into wound base leaving tail exposed.Cover with Optifoam gentle. 3. Sign and date all dressings change dressing daily while in hospital then every 3 days upon discharge. 4. follow up with plastic surgeon. Additional information: Patient was seen today by global technical writer for wound management.Patient alert and oriented x4 resting in bed in no acute distress.Dressing removed from right breast with out difficulty.Wound cleansed with normal saline pat dry.Patient states she had breast augmentation ~2 weeks ago.Wound to right distal breast measures 1.0cm x1.0cm x2.0cm .Wound located on incisional line indicating dehisces with ulceration.Wound base is 90% moist white fascia with wound base detachment located at 2-3 O'clock.Wild Animal Caretaker was able to probe using sterile cotton tip applicator to the depth of 2.0cm with moderate amount of serous exudate noted without odor.Erythema noted ~1cm circumferentially to wound edges. Wild Animal Caretaker noticed area to watch just midline of wound base possible dehisces starting.Wound cleansed with normal saline pat dry Skin prep applied to periwound.Maxorb AG cut in strip and gently packed in wound base till resistance met leaving tail exposed covered and secured with Optifoam gentle dressing signed and dated.Patient tolerated wound care well. Wound/Pressure Injury - Wound Right Lower Breast Wound Type: Traumatic Wound Is This a Chronic Wound: No Requested from Provider a Wound Care Consult: No (Mitul PAULA,[facility] seen 03/11) Length: 1.0 Width: 1.0 Depth: 2.0 Wound Bed Appearance: Kindred, White Wound Bed Appearance: 90% white moist fascia 10% pink non granular tissue Surrounding Tissue Appearance: Erythema Surrounding Tissue Temperature: Warm Drainage Description: Serous Drainage Amount: Minimal Drainage Odor: No Odor Dressing Status: Changed Cleansing Solution: Saline Wound Packing Type: Alginate Primary Dressing: Optifoam gentle Wound Dressing Change Date: 03/11/18 Incision - Incision Right Anterior Breast Incision Assessment: Ongoing Incision Type: Incision Surrounding Tissue Appearance: Erythema, Weeping Surrounding Tissue Temperature: Warm Drainage Amount: Minimal Drainage Odor: No Odor Incision Dressing Status: Dry & Intact, Changed Other Cover Dressing: BORDERED GAUZE Left Anterior Breast Incision Assessment: Ongoing Incision Type: Incision Incision Description: Approximated Surrounding Tissue Temperature: Warm Drainage Amount: None Drainage Odor: No Odor Incision Dressing Status: Open to Air
[2018-03-11] MEDS ORDERED: Ibuprofen 400 MG Tablet PO PRN (18:04)
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
--- NOTE | 2018-03-11 21:24 | ECG ---
Date Performed: 03/10/2018 Time Performed: 22:47:56 PTAGE: 47 years EKG: SINUS TACHYCARDIA BORDERLINE LEFT AXIS DEVIATION LOW QRS VOLTAGE IN EXTREMITY LEADS ABNORMA L RHYTHM ECG PREVIOUS TRACING : 05/16/2015 17.19 Since the previous tracing, no significant change noted DOCTOR: Alfonso Marshall Interpretating Date/Time 03/11/2018 21:23:19
[2018-03-11] MEDS: traZODone 50 MG Tablet PO SCH (21:49)
[2018-03-11] MEDS: Venlafaxine XR 75 MG Capsule PO SCH (21:50)
[2018-03-12] MEDS: Vancomycin Inj 1,000 MG in Sodium Chlor 0.9% Inj 250 ML IV.SIG SCH ×2 (00:15→12:25)
[2018-03-12] MEDS: Enoxaparin Inj 40 MG/0.4 ML Syringe SQ SCH (08:24)
--- NOTE | 2018-03-12 09:55 | US ---
EXAM DATE: 03/12/2018 9:27 AM EDT AGE/SEX: 47 years / Female INDICATIONS: Left arm swelling. CLINICAL DATA: This is the patient's initial encounter. Patient reports that signs and symptoms have been present for 1 day and indicates a pain score of 5/10. MEDICAL/SURGICAL HISTORY: . Breast cancer. Right upper lobe lung nodule. Hysterectomy. Mastec stephie, bilateral. COMPARISON: No prior exams available for comparison. FINDINGS: The vessels are compressible and augmentation response is documented. No filling defects a re seen. The flow is phasic with respiration. Other: None. CONCLUSION: 1. No evidence of DVT. Electronically signed by: Jeremy Cabrera MD 03/12/2018 9:53 AM EDT
--- NOTE | 2018-03-12 10:43 | P.PNONC ---
Subjective Interval history: Afebrile. Patient lying in bed, in no acute distress. She reports pain to her entire right breast. She also reports pain to her left shoulder which started this a.m. The patient states that she is hoping that she just slept on that arm wrong last night. She does have a history of DVT in that arm. She had developed a DVT after port placement. The port has been removed and the patient took Eliquis for 6 months. Objective Vital Signs/Intake & Output: Vital Signs 03/11/18 11:00 03/11/18 12:35 03/11/18 15:00 Temperature 98 F Pulse Rate 87 88 94 H Respiratory Rate 18 Blood Pressure 126/77 Pulse Oximetry 100 03/11/18 16:00 03/11/18 22:19 03/11/18 22:47 Temperature 98.2 F Pulse Rate 87 105 H Respiratory Rate 18 16 Blood Pressure 93/62 L Pulse Oximetry 100 03/12/18 00:00 03/12/18 01:19 03/12/18 04:00 Temperature 98.2 F Pulse Rate 86 86 89 Respiratory Rate 16 16 Blood Pressure 91/57 L Pulse Oximetry 100 03/12/18 06:14 03/12/18 07:32 03/12/18 08:00 Temperature 97.9 F Pulse Rate 81 86 Respiratory Rate 18 17 Blood Pressure 102/78 Pulse Oximetry 99 03/12/18 08:50 03/12/18 08:52 Temperature 98.2 F Pulse Rate 80 Respiratory Rate 18 Blood Pressure 129/73 Pulse Oximetry 100 100 Intake & Output 03/11/18 03/12/18 03/12/18 18:59 06:59 18:59 Intake Total 1830 / 1830 1310 / 1310 Output Total 800 / 800 1750 / 1750 Balance 1030 / 1030 -440 / -440 Weight 63.5 kg Intake: IV 1350 / 1350 350 / 350 NS Inj 1,000 ML @ 100 mls/hr IV 1000 / 1000 .CONT .Q10H SILVIA Rx#:[id number] Azactam Inj 1,000 MG In NS Inj 100 / 100 100 / 100 100 ML @ 200 mls/hr IV.SIG Q12H SILVIA Rx#:[id number] Vancomycin Inj 1,000 MG In NS 250 / 250 250 / 250 Inj 250 ML @ 250 mls/hr IV.SIG Q12H SILVIA Rx#:[id number] Oral 480 / 480 960 / 960 Output: Urine 800 / 800 1750 / 1750 Other: Date of Last Bowel Movement 03/10/18 Result Diagrams: 03/11/18 05:46 03/11/18 05:46 Culture Results: Microbiology 03/10/18 23:59 Gram Stain - Final Abscess - Breast Wound Culture - Preliminary Immature growth - reincubate 03/10/18 21:00 Aerobic Blood Culture - Preliminary Blood - Peripheral No growth in 1 day Anaerobic Blood Culture - Preliminary No growth in 1 day 03/10/18 21:05 Aerobic Blood Culture - Preliminary Blood - Peripheral No growth in 1 day Anaerobic Blood Culture - Preliminary No growth in 1 day Imaging Studies: Impressions Venous Doppler Study 03/12/18 00:00 CONCLUSION: 1. No evidence of DVT. Medications: Active Medications Generic Name Dose Route Start Last Admin Trade Name Freq PRN Reason Stop Dose Admin Hydrocodone Bitart/Acetaminophen 1 tab 03/10/18 23:24 03/12/18 06:27 [place] 5/325 PO 1 tab Q6H PRN Administration pain 1 to 10 Anastrozole 1 mg 03/10/18 23:30 03/11/18 21:50 Arimidex PO 1 mg HS SILVIA Administration Enoxaparin Sodium 40 mg 03/11/18 00:00 03/12/18 08:24 Lovenox Inj SQ 40 mg DAILY SILVIA Administration Aztreonam 1,000 mg/ Sodium 100 mls @ 200 mls/hr 03/11/18 09:00 03/12/18 09:35 Chloride IV.SIG 200 mls/hr Q12H SILVIA Administration Vancomycin HCl 1,000 mg/ 250 mls @ 250 mls/hr 03/11/18 12:00 03/12/18 01:31 Sodium Chloride IV.SIG Infused Q12H SILVIA Infusion Ibuprofen 400 mg 03/11/18 18:04 03/11/18 19:10 Motrin PO 400 mg Q8H PRN Administration MIGRAINE HEADACHE Promethazine HCl 12.5 mg 03/10/18 23:30 03/12/18 06:27 Phenergan PO 12.5 mg Q6H PRN Administration NAUSEA OR VOMITING Trazodone HCl 50 mg 03/11/18 21:00 03/11/18 21:49 Desyrel PO 50 mg HS SILVIA Administration Venlafaxine HCl 75 mg 03/11/18 21:00 03/11/18 21:50 Effexor Xr PO 75 mg HS SILVIA Administration Objective Remarks: GENERAL: Well-nourished, well-developed young female patient, in no acute distress. SKIN: Warm and dry. Large area of erythema to right chest, encompassing right breast. Right breast at 6:00 wound, dressing with yellow drainage noted, xeroform/dry drsg. HEAD: Normocephalic. EYES: No scleral icterus. No injection or drainage. NECK: Supple, trachea midline. CARDIOVASCULAR: +S1/S2 without murmurs. RESPIRATORY: Breath sounds equal bilaterally. No accessory muscle use. GASTROINTESTINAL: Abdomen soft, non-tender, nondistended. EXTREMITIES: No cyanosis, or edema. Left arm slightly > right. MUSCULOSKELETAL: Adequate muscle tone. NEUROLOGICAL: No obvious focal deficit. Awake, alert, and oriented x3. PSYCHIATRIC: Appropriate mood and affect; insight and judgment normal. Assessment/Plan - Plan This is a pleasant 47-year-old woman with a history of high risk breast cancer, status post definitive surgery and adjuvant systemic chemotherapy, currently on adjuvant hormonal therapy. She had reconstructive breast surgery about 6 weeks ago. She began to experience breast swelling, pain and infection with the reconstructed right breast. Oncology was consulted for new pulmonary nodule seen on CT scan. Plan: 1. Breast wound, status post reconstructive surgery. Continue IV antibiotic therapy. Ultimately, the patient will follow up with Dr. Prince, her plastic surgeon. 2. Continue wound care. 3. Pulmonary nodule, possibly present on CT PET scan at diagnosis in 2017. Dr Akhtar concurs with radiology recommendation of surveillance CT scan in 6 months. She will also review with radiology to get their opinion as well. Patient will also follow-up with her oncologist at [facility]. 4. We will resume home medications. 5. Left shoulder pain with history of DVT in that arm. Ultrasound was negative for DVT. Continue prophylactic Lovenox. - Attending Statement Agree with above. Continue current care. US neg for DVT.
--- NOTE | 2018-03-12 10:44 | P.PN ---
Subjective Interval history: Follow-up SIRS/right breast wound purulent discharge/history of breast cancer March 11, 2018-patient seen and examined, currently afebrile .T-max 100.4 .right breast throbbing and pain March 12, 2018-patient seen and examined, report worsening of right breast erythema. Patient complained of left upper extremity swelling and is concerned about possible clot. Currently afebrile Physical Exam Vital signs: Vital Signs 03/11/18 11:00 03/11/18 12:35 03/11/18 15:00 Temperature 98 F Pulse Rate 87 88 94 H Respiratory Rate 18 Blood Pressure 126/77 Pulse Oximetry 100 03/11/18 16:00 03/11/18 22:19 03/11/18 22:47 Temperature 98.2 F Pulse Rate 87 105 H Respiratory Rate 18 16 Blood Pressure 93/62 L Pulse Oximetry 100 03/12/18 00:00 03/12/18 01:19 03/12/18 04:00 Temperature 98.2 F Pulse Rate 86 86 89 Respiratory Rate 16 16 Blood Pressure 91/57 L Pulse Oximetry 100 03/12/18 06:14 03/12/18 07:32 03/12/18 08:00 Temperature 97.9 F Pulse Rate 81 86 Respiratory Rate 18 17 Blood Pressure 102/78 Pulse Oximetry 99 03/12/18 08:50 03/12/18 08:52 Temperature 98.2 F Pulse Rate 80 Respiratory Rate 18 Blood Pressure 129/73 Pulse Oximetry 100 100 Intake & Output 03/11/18 03/12/18 03/12/18 18:59 06:59 18:59 Intake Total 1830 / 1830 1310 / 1310 Output Total 800 / 800 1750 / 1750 Balance 1030 / 1030 -440 / -440 Weight 63.5 kg Intake: IV 1350 / 1350 350 / 350 NS Inj 1,000 ML @ 100 mls/hr IV 1000 / 1000 .CONT .Q10H [facility] Rx#:[id number] Azactam Inj 1,000 MG In NS Inj 100 / 100 100 / 100 100 ML @ 200 mls/hr IV.SIG Q12H [facility] Rx#:[id number] Vancomycin Inj 1,000 MG In NS 250 / 250 250 / 250 Inj 250 ML @ 250 mls/hr IV.SIG Q12H [facility] Rx#:[id number] Oral 480 / 480 960 / 960 Output: Urine 800 / 800 1750 / 1750 Other: Date of Last Bowel Movement 03/10/18 Narrative: GENERAL: NAD SKIN: Warm and dry. HEAD: Normocephalic. EYES: No scleral icterus. No injection or drainage. NECK: Supple, trachea midline. No JVD or lymphadenopathy. CARDIOVASCULAR: Regular rate and rhythm without murmurs, gallops, or rubs. RESPIRATORY: Breath sounds equal bilaterally. No accessory muscle use. Breast exam: This was performed in the presence of the nurse. Right breast with dressing over with surrounding erythema and slightly tender to palpation GASTROINTESTINAL: Abdomen soft, non-tender, nondistended. MUSCULOSKELETAL: No cyanosis, or edema. BACK: Nontender without obvious deformity. No CVA tenderness. Results - Labs CBC & Chem 7: 03/11/18 05:46 03/11/18 05:46 Microbiology 03/10/18 23:59 Abscess - Breast Gram Stain - Final 03/10/18 23:59 Abscess - Breast Wound Culture - Preliminary Immature growth - reincubate 03/10/18 21:00 Blood - Peripheral Aerobic Blood Culture - Preliminary No growth in 1 day 03/10/18 21:00 Blood - Peripheral Anaerobic Blood Culture - Preliminary No growth in 1 day 03/10/18 21:05 Blood - Peripheral Aerobic Blood Culture - Preliminary No growth in 1 day 03/10/18 21:05 Blood - Peripheral Anaerobic Blood Culture - Preliminary No growth in 1 day - Imaging Impressions Venous Doppler Study 03/12/18 00:00 CONCLUSION: 1. No evidence of DVT. Assessment and Plan - Plan 47 y/o female with SIRS: suspect right breast wound infection Right breast cellulitis -Continue IV antibiotics aztreonam and vancomycin -Check Breast US to rule out abscess -Consider infectious disease specialist consultation if no improvement within the next 48 hours -Wound care nurse input appreciated -Continue pain management accordingly Left upper extremity swelling -Check Doppler to rule out clots Lactic acidosis -Resolved, therefore will discontinue IV fluid hydration Lung nodule, in patient with history of breast cancer Chest CT reviewed and shows a 4 mm noncalcified nodule within the posterior aspect of the right upper lobe -Oncology ff -CT recommends follow up in 6 months History of breast cancer -Continue with Arimidex Depression, chronic -Continue home medications DVT prophylaxis: Lovenox
[2018-03-12] MEDS ORDERED: Pharmacy Ordered Lab Info OTHER ONE (11:45)
[2018-03-12] MEDS: Senna/Docusate Sodium 8.6/50 MG Tablet PO SCH ×2 (12:26→22:17)
--- NOTE | 2018-03-12 13:42 | US ---
EXAM DATE: 03/12/2018 12:10 PM EDT AGE/SEX: 47 years / Female INDICATIONS: Right breast redness and swelling with drainage. CLINICAL DATA: This is the patient's initial encounter. Patient reports that signs and symptoms have been present for 3 days and indicates a pain score of 3/10. MEDICAL/SURGICAL HISTORY: . Breast cancer. Right upper lobe lung nodule. . Hysterectomy. Maste ctomy, bilateral. COMPARISON: No prior exams available for comparison. TECHNIQUE: Real-time ultrasound examination was performed using a high-frequency transducer. Conven tional and compound scanning techniques were used. FINDINGS: A focused ultrasound of the right breast at 6:00, 10 cm from the nipple demonstrates a hole in the sk in with a tract that leads down to the implant. This measures about 7 mm in length. The adjacent soft tissues are grossly unremarkable. No loculated fluid collections are demonstrated. CONCLUSION: 1. There appears to be a hole in the skin with a tract that leads down to the implant located at 6:0 0, 10 cm from the nipple. Electronically signed by: Jeremy Cabrera MD 03/12/2018 1:40 PM EDT
[2018-03-12] MEDS ORDERED: Methocarbamol 500 MG Tablet PO PRN (18:07)
[2018-03-12] MEDS: Anastrozole 1 MG Tablet PO SCH (22:17)
[2018-03-12] MEDS: traZODone 50 MG Tablet PO SCH (22:17)
[2018-03-12] MEDS: Venlafaxine XR 75 MG Capsule PO SCH (22:17)
[2018-03-13] MEDS: Vancomycin Inj 1,250 MG in Sodium Chlor 0.9% Inj 250 ML IV.SIG SCH ×2 (00:12→11:05)
[2018-03-13] MEDS: LORazepam 1 MG Tablet PO PRN ×2 (04:53→09:22)
[2018-03-13 08:05] LABS: Glomerular Filtration Rate Greater Than 89 mL/min (>89)
[2018-03-13] MEDS: Enoxaparin Inj 40 MG/0.4 ML Syringe SQ SCH (09:21)
[2018-03-13] MEDS: Senna/Docusate Sodium 8.6/50 MG Tablet PO SCH ×2 (09:22→20:10)
--- NOTE | 2018-03-13 11:27 | P.PNONC ---
Subjective Interval history: T-max 100.3 overnight Patient reports she had a difficult night; she states she had an anxiety attack and was also up multiple times to the bathroom She has just received some Ativan this morning and is now sleepy Reports some mild shortness of breath Denies pain around the area of breast infection Objective Vital Signs/Intake & Output: Vital Signs 03/12/18 12:00 03/12/18 13:08 03/12/18 16:00 Temperature 98 F Pulse Rate 80 87 84 Respiratory Rate 18 Blood Pressure 115/79 Pulse Oximetry 99 03/12/18 16:04 03/12/18 21:00 03/13/18 00:09 Temperature 98.4 F 98.8 F 98.5 F Pulse Rate 77 76 78 Respiratory Rate 17 17 16 Blood Pressure 113/77 122/85 122/81 Pulse Oximetry 98 99 100 03/13/18 01:00 03/13/18 04:00 03/13/18 04:55 Temperature Pulse Rate 76 78 76 Respiratory Rate 18 18 Blood Pressure 135/92 H Pulse Oximetry 100 03/13/18 04:56 03/13/18 08:00 Temperature 100.3 F H 98.1 F Pulse Rate 84 Respiratory Rate 16 Blood Pressure 110/77 Pulse Oximetry 99 Intake & Output 03/12/18 03/13/18 03/13/18 18:59 06:59 18:59 Intake Total 830 / 830 1063.5 / 1063.5 100 / 100 Output Total 375 / 375 1700 / 1700 Balance 455 / 455 -636.5 / -636.5 100 / 100 Weight 142 lb 3.17 oz Intake: IV 350 / 350 362.5 / 362.5 100 / 100 Azactam Inj 1,000 MG In NS Inj 100 / 100 100 / 100 100 / 100 100 ML @ 200 mls/hr IV.SIG Q12H [facility] Rx#:[id number] Vancomycin Inj 1,000 MG In NS 250 / 250 Inj 250 ML @ 250 mls/hr IV.SIG Q12H [facility] Rx#:[id number] Vancomycin Inj 1,250 MG In NS 262.5 / 262.5 Inj 250 ML @ 250 mls/hr IV.SIG Q12H [facility] Rx#:[id number] Oral 480 / 480 701 / 701 Output: Urine 375 / 375 1700 / 1700 Other: Date of Last Bowel Movement 03/12/18 03/12/18 # Bowel Movements 1 Result Diagrams: 03/11/18 05:46 03/13/18 05:41 Laboratory Results: Laboratory Results - last 24 hr 03/12/18 03/13/18 12:15 05:41 Creatinine 0.63 Estimated GFR Greater than 89 Vancomycin Trough 8.1 Culture Results: Microbiology 03/10/18 21:00 Aerobic Blood Culture - Preliminary Blood - Peripheral No growth in 3 days Anaerobic Blood Culture - Preliminary No growth in 3 days 03/10/18 21:05 Aerobic Blood Culture - Preliminary Blood - Peripheral No growth in 3 days Anaerobic Blood Culture - Preliminary No growth in 3 days 03/10/18 23:59 Gram Stain - Final Abscess - Breast Wound Culture - Final Staphylococcus aureus Staphylococcus lugdunensis Imaging Studies: Impressions Breast Ultrasound 03/12/18 00:00 CONCLUSION: 1. There appears to be a hole in the skin with a tract that leads down to the implant located at 6:00, 10 cm from the nipple. Medications: Active Medications Generic Name Dose Route Start Last Admin Trade Name Freq PRN Reason Stop Dose Admin Hydrocodone Bitart/Acetaminophen 1 tab 03/12/18 18:15 03/13/18 09:21 [place] 5/325 PO 1 tab Q4H PRN Administration PAIN SCALE 1 TO 10 Anastrozole 1 mg 03/10/18 23:30 03/12/18 22:17 Arimidex PO 1 mg HS [facility] Administration Enoxaparin Sodium 40 mg 03/11/18 00:00 03/13/18 09:21 Lovenox Inj SQ 40 mg DAILY [facility] Administration Aztreonam 1,000 mg/ Sodium 100 mls @ 200 mls/hr 03/11/18 09:00 03/13/18 10:00 Chloride IV.SIG Infused Q12H [facility] Infusion Vancomycin HCl 1,250 mg/ 262.5 mls @ 250 mls/hr 03/13/18 00:00 03/13/18 11:05 Sodium Chloride IV.SIG 250 mls/hr Q12H [facility] Administration Ibuprofen 400 mg 03/11/18 18:04 03/11/18 19:10 Motrin PO 400 mg Q8H PRN Administration MIGRAINE HEADACHE Lorazepam 1 mg 03/10/18 23:15 03/13/18 09:22 Ativan PO 1 mg BID PRN Administration Anxiety Promethazine HCl 12.5 mg 03/10/18 23:30 03/13/18 04:54 Phenergan PO 12.5 mg Q6H PRN Administration NAUSEA OR VOMITING Senna/Docusate Sodium 1 tab 03/12/18 10:45 03/13/18 09:22 Megan-Colace PO 1 tab BID [facility] Administration Trazodone HCl 50 mg 03/11/18 21:00 03/12/18 22:17 Desyrel PO 50 mg HS [facility] Administration Venlafaxine HCl 75 mg 03/11/18 21:00 03/12/18 22:17 Effexor Xr PO 75 mg HS [facility] Administration Objective Remarks: GENERAL: Middle-aged female resting in bed asleep on approach. She wakens easily to verbal stimuli. SKIN: Warm and dry. Large area of erythema to right chest, encompassing right breast. Right breast at 6:00 wound, dressing with serous drainage noted HEAD: Normocephalic. EYES: No scleral icterus. No injection or drainage. NECK: Supple, trachea midline. CARDIOVASCULAR: +S1/S2 without murmurs. RESPIRATORY: Clear anteriorly. Breathing unlabored at rest. On room air with O2 sats 99-100%. GASTROINTESTINAL: Abdomen soft, non-tender, nondistended. EXTREMITIES: No cyanosis, or edema. Left arm slightly > right. MUSCULOSKELETAL: Adequate muscle tone. NEUROLOGICAL: No obvious focal deficit. Awake, alert, and oriented x3. Assessment/Plan - Plan This is a pleasant 47-year-old woman with a history of high risk breast cancer, status post definitive surgery and adjuvant systemic chemotherapy, currently on adjuvant hormonal therapy. She had reconstructive breast surgery about 6 weeks ago. She began to experience breast swelling, pain and infection with the reconstructed right breast. Oncology was consulted for new pulmonary nodule seen on CT scan. Plan: 1. Consult plastic surgery for recommendations as patient has recently had reconstructive surgery with infection 2. Wound culture is positive for staph aureus and staph lugdunesis; pt on Vancomycin, aztrenoam. Vanco with good sensitivity. 3. Once discharged she will follow up with her oncologist at [facility]. 4. Supportive care. - Attending Statement The exam, history, and the medical decision-making described in the above note were completed with the assistance of the mid-level provider. I reviewed and agree with the findings presented. I attest that I had a [id number] encounter with the patient on the same day, and personally performed and documented my assessment and findings in the medical record. Pt seen and examined in AM. Noted another temp 100.3 despite abx. Cultures positive for Staph Aureus. It appeared she was defervescing. The right breast is still swollen and red. Dressing in place. CT and US negative for fluid collection. Well known pt to Dr. Prince in [place]. Discussed consultation with local plastic surgeon if any further recommendations to address, cellulitis post reconstruction and local debridement. Discussed with plastic surgeon who agree to see pt and examine. Follow with CT chest in 6 months time. Her oncologic care is at [facility] but we will be happy to coordinate FU CT locally. Defer to primary team continue management of cellulitis, her presenting complaint.
--- NOTE | 2018-03-13 14:35 | P.PN ---
Subjective Interval history: Follow-up SIRS/right breast wound purulent discharge/history of breast cancer March 11, 2018-patient seen and examined, currently afebrile .T-max 100.4 .right breast throbbing and pain March 12, 2018-patient seen and examined, report worsening of right breast erythema. Patient complained of left upper extremity swelling and is concerned about possible clot. Currently afebrile March 13, 2018-patient seen and examined; Afebrile; some anxiety; states she had difficulty sleeping at night Physical Exam Vital signs: Vital Signs 03/12/18 16:00 03/12/18 16:04 03/12/18 21:00 Temperature 98.4 F 98.8 F Pulse Rate 84 77 76 Respiratory Rate 17 17 Blood Pressure 113/77 122/85 Pulse Oximetry 98 99 03/13/18 00:09 03/13/18 01:00 03/13/18 04:00 Temperature 98.5 F Pulse Rate 78 76 78 Respiratory Rate 16 18 Blood Pressure 122/81 Pulse Oximetry 100 03/13/18 04:55 03/13/18 04:56 03/13/18 08:00 Temperature 100.3 F H 98.1 F Pulse Rate 76 84 Respiratory Rate 18 16 Blood Pressure 135/92 H 110/77 Pulse Oximetry 100 99 03/13/18 11:00 Temperature 98.1 F Pulse Rate 86 Respiratory Rate 16 Blood Pressure 94/66 L Pulse Oximetry 97 Intake & Output 03/12/18 03/13/18 03/13/18 18:59 06:59 18:59 Intake Total 830 / 830 1063.5 / 1063.5 362.5 / 362.5 Output Total 375 / 375 1700 / 1700 Balance 455 / 455 -636.5 / -636.5 362.5 / 362.5 Weight 64.5 kg Intake: IV 350 / 350 362.5 / 362.5 362.5 / 362.5 Azactam Inj 1,000 MG In NS Inj 100 / 100 100 / 100 100 / 100 100 ML @ 200 mls/hr IV.SIG Q12H [facility] Rx#:[id number] Vancomycin Inj 1,000 MG In NS 250 / 250 Inj 250 ML @ 250 mls/hr IV.SIG Q12H [facility] Rx#:[id number] Vancomycin Inj 1,250 MG In NS 262.5 / 262.5 262.5 / 262.5 Inj 250 ML @ 250 mls/hr IV.SIG Q12H [facility] Rx#:[id number] Oral 480 / 480 701 / 701 Output: Urine 375 / 375 1700 / 1700 Other: Date of Last Bowel Movement 03/12/18 03/12/18 # Bowel Movements 1 Narrative: GENERAL: NAD SKIN: Warm and dry. HEAD: Normocephalic. EYES: No scleral icterus. No injection or drainage. NECK: Supple, trachea midline. No JVD or lymphadenopathy. CARDIOVASCULAR: Regular rate and rhythm without murmurs, gallops, or rubs. RESPIRATORY: Breath sounds equal bilaterally. No accessory muscle use. Breast exam: This was performed in the presence of the nurse. Right breast with dressing over with surrounding erythema and slightly tender to palpation GASTROINTESTINAL: Abdomen soft, non-tender, nondistended. MUSCULOSKELETAL: No cyanosis, or edema. BACK: Nontender without obvious deformity. No CVA tenderness. Results - Labs CBC & Chem 7: 03/11/18 05:46 03/13/18 05:41 Laboratory Results - last 24 hr 03/13/18 05:41 Creatinine 0.63 Estimated GFR Greater than 89 Microbiology 03/10/18 21:00 Blood - Peripheral Aerobic Blood Culture - Preliminary No growth in 3 days 03/10/18 21:00 Blood - Peripheral Anaerobic Blood Culture - Preliminary No growth in 3 days 03/10/18 21:05 Blood - Peripheral Aerobic Blood Culture - Preliminary No growth in 3 days 03/10/18 21:05 Blood - Peripheral Anaerobic Blood Culture - Preliminary No growth in 3 days 03/10/18 23:59 Abscess - Breast Gram Stain - Final 03/10/18 23:59 Abscess - Breast Wound Culture - Final Staphylococcus aureus Staphylococcus lugdunensis Assessment and Plan - Plan 47 y/o female with SIRS: suspect right breast wound infection Right breast cellulitis B Breast reconstruction surgery -Continue IV antibiotics aztreonam and vancomycin . Breast wound culture positive for Staph -Check Breast US to rule out abscess -Plastic surgery consulted for evaluation due to finding on Breast US -Wound care nurse input appreciated -Continue pain management accordingly Left upper extremity swelling -Doppler negative for thrombosis Lactic acidosis -Resolved Lung nodule, in patient with history of breast cancer Chest CT reviewed and shows a 4 mm noncalcified nodule within the posterior aspect of the right upper lobe -Oncology ff -CT recommends follow up in 6 months History of breast cancer -Continue with Arimidex Depression, chronic -Continue home medications -Ativan PRN DVT prophylaxis: Lovenox
--- NOTE | 2018-03-13 16:16 | P.CON ---
History of Present Illness Service: Plastic surgery Consult date: 03/13/18 Primary Care Provider: UNKNOWN History of Present Illness: History obtained from both chart and patient 47-year-old female with a history of breast cancer presented to the ED with complaints of a fever and not feeling well, now several days ago. She was admitted for right breast cellulitis and placed on IV antibiotics. A chest CT as well as a breast ultrasound was negative for undrained collections. Patient has a sinus over the right breast which drains fluid. Patient reports that the sinus started roughly [address] Prince (her plastic surgeon in [place] ) debrided a small eschar. Patient reports that she has been in contact with Dr. Prince's office, who would like to see her back in [place] to treat this. Patient initially had low-grade temperatures on admission of 100.4. She was afebrile for 24 hours until having low-grade temps yesterday of 100.3. Patient reports that overall she feels much improved from several days ago. Her pain is less. Patient reports that she would like to have care transferred back to get Dr. Prince. PMFSH Except as noted in the HPI review of systems negative to presenting complaint Medication list reviewed Allergy list reviewed - History History Provided By: Patient - Medical History Medical History: Medical History (Last Reviewed 03/10/18 @ 21:17 by Iliana Jennings) Hx of breast cancer Hx of hysterectomy - Surgical History Surgical History: Surgical History (Last Reviewed 03/10/18 @ 21:17 by Iliana Jennings) Hx of mastectomy - Family History Family History: Family History (Last Updated 03/10/18 @ 23:59 by ÁNGEL Rea) Other Family history unknown - Tobacco History Second Hand Smoke Exposure: Yes Smoking Status: Never smoker - Alcohol History How Often Do You Have a Drink Containing Alcohol: 2 to 4 times a month - Substance Use History Substance History: No History of Abuse - Travel History Recent Travel in the [place] Within the Last 8 Weeks: No Recent Travel Out of the Country Within the Last 8 Weeks: No - Immunization History Tetanus Immunization: Unsure Hx Influenza Vaccine This Season: No PMFSH - History History Provided By: Patient - Medical History Medical History: Medical History (Last Reviewed 03/10/18 @ 21:17 by Iliana Jennings) Hx of breast cancer Hx of hysterectomy - Surgical History Surgical History: Surgical History (Last Reviewed 03/10/18 @ 21:17 by Iliana Jennings) Hx of mastectomy - Family History Family History: Family History (Last Updated 03/10/18 @ 23:59 by ÁNGEL Rea) Other Family history unknown - Tobacco History Second Hand Smoke Exposure: Yes Smoking Status: Never smoker - Alcohol History How Often Do You Have a Drink Containing Alcohol: Never - Substance Use History Substance History: No History of Abuse - Travel History Recent Travel in the [place] Within the Last 8 Weeks: No Recent Travel Out of the Country Within the Last 8 Weeks: No - Immunization History Tetanus Immunization: Unsure Hx Influenza Vaccine This Season: No Medications and Allergies Active Medications: Active Medications Acetaminophen (Tylenol) 650 mg PO Q4H PRN PRN Reason: Temp > 100.4 Hydrocodone Bitart/Acetaminophen ([place] 5/325) 1 tab PO Q4H PRN PRN Reason: PAIN SCALE 1 TO 10 Last Admin: 03/13/18 13:11 Dose: 1 tab Al Hydroxide/Mg Hydroxide (Milk Of Magnbraldey Liq) 30 ml PO DAILY PRN PRN Reason: CONSTIPATION Anastrozole (Arimidex) 1 mg PO HS [facility] Last Admin: 03/12/18 22:17 Dose: 1 mg Enoxaparin Sodium (Lovenox Inj) 40 mg SQ DAILY [facility] Last Admin: 03/13/18 09:21 Dose: 40 mg Aztreonam 1,000 mg/ Sodium (Chloride) 100 mls @ 200 mls/hr IV.SIG Q12H [facility] Last Infusion: 03/13/18 10:00 Dose: Infused Vancomycin HCl 1,250 mg/ (Sodium Chloride) 262.5 mls @ 250 mls/hr IV.SIG Q12H [facility] Last Infusion: 03/13/18 12:10 Dose: Infused Ibuprofen (Motrin) 400 mg PO Q8H PRN PRN Reason: MIGRAINE HEADACHE Last Admin: 03/11/18 19:10 Dose: 400 mg Lorazepam (Ativan) 1 mg PO BID PRN PRN Reason: Anxiety Last Admin: 03/13/18 09:22 Dose: 1 mg Miscellaneous (Pill Splitter) 1 each OTHER UNSCH PRN PRN Reason: PILL SPIT Miscellaneous Information ([facility] Ordered Lab Info) 0 each OTHER ONCE ONE Stop: 03/14/18 11:46 Pharmacy Profile Note (Vancomycin Consult Pharmacy) 1 each OTHER UNSCH PRN PRN Reason: Pharmacy to dose Promethazine HCl (Phenergan) 12.5 mg PO Q6H PRN PRN Reason: NAUSEA OR VOMITING Last Admin: 03/13/18 04:54 Dose: 12.5 mg Senna/Docusate Sodium (Megan-Colace) 1 tab PO BID [facility] Last Admin: 03/13/18 09:22 Dose: 1 tab Trazodone HCl (Desyrel) 50 mg PO [facility] Last Admin: 03/12/18 22:17 Dose: 50 mg Venlafaxine HCl (Effexor Xr) 75 mg PO [facility] Last Admin: 03/12/18 22:17 Dose: 75 mg Allergies Allergy/AdvReac Type Severity Reaction Status Date / Time bee venom protein (honey bee) Allergy Severe ENTIRE Verified 03/10/18 21:10 BODY SWELLS penicillin G Allergy Severe HIVES Verified 03/10/18 21:10 ciprofloxacin Allergy Unknown Hives Verified 03/10/18 21:10 Home Medications Medication Instructions Recorded Confirmed Type anastrozole 1 mg PO DAILY 03/10/18 03/10/18 History lorazepam 1 mg PO BID PRN 03/10/18 03/10/18 History promethazine 12.5 mg PO Q4-6H PRN 03/10/18 03/10/18 History venlafaxine [Effexor XR] 75 mg PO DAILY 03/10/18 03/10/18 History methocarbamol 500 mg PO QID 03/12/18 03/12/18 History oxycodone-acetaminophen 5 - 325 mg PO PRN 03/12/18 03/12/18 History Physical Exam Vital signs: Vital Signs 03/12/18 21:00 03/13/18 00:09 03/13/18 01:00 Temperature 98.8 F 98.5 F Pulse Rate 76 78 76 Respiratory Rate 17 16 Blood Pressure 122/85 122/81 Pulse Oximetry 99 100 03/13/18 04:00 03/13/18 04:55 03/13/18 04:56 Temperature 100.3 F H Pulse Rate 78 76 Respiratory Rate 18 18 Blood Pressure 135/92 H Pulse Oximetry 100 03/13/18 08:00 03/13/18 11:00 03/13/18 15:00 Temperature 98.1 F 98.1 F 98 F Pulse Rate 84 86 76 Respiratory Rate 16 16 18 Blood Pressure 110/77 94/66 L 102/77 Pulse Oximetry 99 97 Intake & Output 03/12/18 03/13/18 03/13/18 18:59 06:59 18:59 Intake Total 830 / 830 1063.5 / 1063.5 362.5 / 362.5 Output Total 375 / 375 1700 / 1700 Balance 455 / 455 -636.5 / -636.5 362.5 / 362.5 Weight 64.5 kg Intake: IV 350 / 350 362.5 / 362.5 362.5 / 362.5 Azactam Inj 1,000 MG In NS Inj 100 / 100 100 / 100 100 / 100 100 ML @ 200 mls/hr IV.SIG Q12H [facility] Rx#:[id number] Vancomycin Inj 1,000 MG In NS 250 / 250 Inj 250 ML @ 250 mls/hr IV.SIG Q12H [facility] Rx#:[id number] Vancomycin Inj 1,250 MG In NS 262.5 / 262.5 262.5 / 262.5 Inj 250 ML @ 250 mls/hr IV.SIG Q12H [facility] Rx#:[id number] Oral 480 / 480 701 / 701 Output: Urine 375 / 375 1700 / 1700 Other: Date of Last Bowel Movement 03/12/18 03/12/18 # Bowel Movements 1 Narrative: No apparent anxiety moist mucous membranes PERRLA skin without rash respirations nonlabored gait within normal limits digits warm well perfused Nursing [employer] present Bilateral breasts with centeno pattern incision, well-healed Left breast incision without erythema, nontender Right breast with diffuse blanching erythema Moderately tender to firm palpation No discharge expressed Roughly 1 cm sinus several centimeters above the right IMF within the vertical incision Assessment and Plan - Assessment (1) Cellulitis of right breast Code(s): N61.0 - Mastitis without abscess Status: Acute - Plan 47-year-old female 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 Prince in [place], now with right breast cellulitis Agree with IV antibiotics Consider consulting infectious disease Patient's care should be transferred back to Dr. Niki roger [place] Once afebrile for 24 hours, consider discharge to Dr. Prince's care on oral antibiotics
[2018-03-13] MEDS: traZODone 50 MG Tablet PO SCH (20:10)
[2018-03-13] MEDS: Anastrozole 1 MG Tablet PO SCH (20:10)
[2018-03-13] MEDS: Venlafaxine XR 75 MG Capsule PO SCH (20:11)
[2018-03-14] MEDS: Vancomycin Inj 1,250 MG in Sodium Chlor 0.9% Inj 250 ML IV.SIG SCH ×2 (00:47→11:21)
[2018-03-14] MEDS: Senna/Docusate Sodium 8.6/50 MG Tablet PO SCH (08:26)
[2018-03-14] MEDS: Enoxaparin Inj 40 MG/0.4 ML Syringe SQ SCH (08:26)
--- NOTE | 2018-03-14 10:36 | P.PNONC ---
Subjective Interval history: Afebrile Patient sitting up in bed complaining of left forearm pain where her IV infiltrated overnight She reports she has been keeping compresses on it this morning Anxious to go home Requesting [facility] at home health care. Objective Vital Signs/Intake & Output: Vital Signs 03/13/18 11:00 03/13/18 15:00 03/13/18 20:00 Temperature 98.1 F 98 F 98.7 F Pulse Rate 86 76 79 Respiratory Rate 16 18 18 Blood Pressure 94/66 L 102/77 120/85 Pulse Oximetry 97 97 03/13/18 20:25 03/14/18 00:48 03/14/18 04:00 Temperature 98.4 F 98.3 F Pulse Rate 90 75 76 Respiratory Rate 18 18 Blood Pressure 135/93 H 124/87 Pulse Oximetry 96 03/14/18 08:23 Temperature 98.1 F Pulse Rate 77 Respiratory Rate 17 Blood Pressure 131/86 Pulse Oximetry 77 L Intake & Output 03/13/18 03/14/18 03/14/18 18:59 06:59 18:59 Intake Total 1442.5 / 1442.5 602.5 / 602.5 100 / 100 Output Total 950 / 950 700 / 700 Balance 492.5 / 492.5 -97.5 / -97.5 100 / 100 Weight 141 lb 8.588 oz Intake: IV 362.5 / 362.5 362.5 / 362.5 100 / 100 Azactam Inj 1,000 MG In NS Inj 100 / 100 100 / 100 100 / 100 100 ML @ 200 mls/hr IV.SIG Q12H [facility]IL[facility] Rx#:[id number] Vancomycin Inj 1,250 MG In NS 262.5 / 262.5 262.5 / 262.5 Inj 250 ML @ 250 mls/hr IV.SIG Q12H SIL[facility] Rx#:[id number] Oral 1080 / 1080 240 / 240 Output: Urine 950 / 950 700 / 700 Result Diagrams: 03/11/18 05:46 03/13/18 05:41 Culture Results: Microbiology 03/10/18 21:00 Aerobic Blood Culture - Preliminary Blood - Peripheral No growth in 3 days Anaerobic Blood Culture - Preliminary No growth in 3 days 03/10/18 21:05 Aerobic Blood Culture - Preliminary Blood - Peripheral No growth in 3 days Anaerobic Blood Culture - Preliminary No growth in 3 days 03/10/18 23:59 Gram Stain - Final Abscess - Breast Wound Culture - Final Staphylococcus aureus Staphylococcus lugdunensis Medications: Active Medications Generic Name Dose Route Start Last Admin Trade Name Freq PRN Reason Stop Dose Admin Hydrocodone Bitart/Acetaminophen 1 tab 03/12/18 18:15 03/14/18 08:26 [place] 5/325 PO 1 tab Q4H PRN Administration PAIN SCALE 1 TO 10 Anastrozole 1 mg 03/10/18 23:30 03/13/18 20:10 Arimidex PO 1 mg HS SILVIA Administration Enoxaparin Sodium 40 mg 03/11/18 00:00 03/14/18 08:26 Lovenox Inj SQ 40 mg DAILY SILVIA Administration Aztreonam 1,000 mg/ Sodium 100 mls @ 200 mls/hr 03/11/18 09:00 03/14/18 10:14 Chloride IV.SIG Infused Q12H SIL[facility]IA Infusion Vancomycin HCl 1,250 mg/ 262.5 mls @ 250 mls/hr 03/13/18 00:00 03/14/18 02:38 Sodium Chloride IV.SIG Infused Q12H SIL[facility] Infusion Ibuprofen 400 mg 03/11/18 18:04 03/11/18 19:10 Motrin PO 400 mg Q8H PRN Administration MIGRAINE HEADACHE Lorazepam 1 mg 03/10/18 23:15 03/13/18 09:22 Ativan PO 1 mg BID PRN Administration Anxiety Promethazine HCl 12.5 mg 03/10/18 23:30 03/14/18 06:35 Phenergan PO 12.5 mg Q6H PRN Administration NAUSEA OR VOMITING Senna/Docusate Sodium 1 tab 03/12/18 10:45 03/14/18 08:26 Megan-Colace PO 1 tab BID SILVIA Administration Trazodone HCl 50 mg 03/11/18 21:00 03/13/18 20:10 Desyrel PO 50 mg HS SILVIA Administration Venlafaxine HCl 75 mg 03/11/18 21:00 03/13/18 20:11 Effexor Xr PO 75 mg HS SILVIA Administration Objective Remarks: GENERAL: Middle-aged female resting in bed asleep on approach. She wakens easily to verbal stimuli. SKIN: Warm and dry. Persistent erythema to right breast. HEAD: Normocephalic. EYES: No scleral icterus. No injection or drainage. NECK: Supple, trachea midline. CARDIOVASCULAR: +S1/S2 without murmurs. RESPIRATORY: Clear anteriorly. Breathing unlabored at rest. GASTROINTESTINAL: Abdomen soft, non-tender, nondistended. EXTREMITIES: No cyanosis, or edema. Left arm slightly > right. MUSCULOSKELETAL: Adequate muscle tone. NEUROLOGICAL: No obvious focal deficit. Awake, alert, and oriented x3. Assessment/Plan - Plan This is a pleasant 47-year-old woman with a history of high risk breast cancer, status post definitive surgery and adjuvant systemic chemotherapy, currently on adjuvant hormonal therapy. She had reconstructive breast surgery about 6 weeks ago. She began to experience breast swelling, pain and infection with the reconstructed right breast. Oncology was consulted for new pulmonary nodule seen on CT scan. Plan: 1. Patient will follow up with Dr. Prince in [place] for further recommendations on breast wound 2. Patient is clear for discharge from oncology standpoint on p.o. antibiotics 3. Patient reports she is considering establishing with oncology locally as well as keeping her oncologist at [facility]. She is planning to call next week to arrange follow-up with Dr. Akhtar. - Attending Statement The exam, history, and the medical decision-making described in the above note were completed with the assistance of the mid-level provider. I reviewed and agree with the findings presented. I attest that I had a [id number] encounter with the patient on the same day, and personally performed and documented my assessment and findings in the medical record. Patient seen and discussed with Dr. michaels. Sensitivities are available. Oral antibiotic therapy have been decided. Infectious disease consultation was canceled. Okay from oncology standpoint for patient to go home on oral antibiotic therapy. She plans to go to her plastic surgeons clinic on Friday, Dr. Prince in [place]. She will follow-up with her medical oncologist to repeat CT scan of the chest to ensure stability of the pulmonary nodule identified. Her questions were answered to her satisfaction.
--- NOTE | 2018-03-14 10:53 | P.DCO ---
- Home Health Nursing Order: Wound care and dressing changes - Certification I have seen patient Tiana Lares on 03/14/18. My clinical findings support the need for the requested home health care services because: Infection with risk of complications I certify that my clinical findings support that this patient is homebound because: Poor cardiac reserve
--- NOTE | 2018-03-14 11:03 | P.PN ---
Subjective Interval history: Follow-up SIRS/right breast wound purulent discharge/history of breast cancer March 11, 2018-patient seen and examined, currently afebrile .T-max 100.4 .right breast throbbing and pain March 12, 2018-patient seen and examined, report worsening of right breast erythema. Patient complained of left upper extremity swelling and is concerned about possible clot. Currently afebrile March 13, 2018-patient seen and examined; Afebrile; some anxiety; states she had difficulty sleeping at night March 14, 2018-patient seen and examined, afebrile looking for discharge home. Patient was seen in the presence of Dr. Akhtar Physical Exam Vital signs: Vital Signs 03/13/18 15:00 03/13/18 20:00 03/13/18 20:25 Temperature 98 F 98.7 F Pulse Rate 76 79 90 Respiratory Rate 18 18 Blood Pressure 102/77 120/85 Pulse Oximetry 97 03/14/18 00:48 03/14/18 04:00 03/14/18 07:00 Temperature 98.4 F 98.3 F Pulse Rate 75 76 79 Respiratory Rate 18 18 Blood Pressure 135/93 H 124/87 Pulse Oximetry 96 03/14/18 08:23 Temperature 98.1 F Pulse Rate 77 Respiratory Rate 17 Blood Pressure 131/86 Pulse Oximetry 77 L Intake & Output 03/13/18 03/14/18 03/14/18 18:59 06:59 18:59 Intake Total 1442.5 / 1442.5 602.5 / 602.5 100 / 100 Output Total 950 / 950 700 / 700 Balance 492.5 / 492.5 -97.5 / -97.5 100 / 100 Weight 64.2 kg Intake: IV 362.5 / 362.5 362.5 / 362.5 100 / 100 Azactam Inj 1,000 MG In NS Inj 100 / 100 100 / 100 100 / 100 100 ML @ 200 mls/hr IV.SIG Q12H [facility] Rx#:[id number] Vancomycin Inj 1,250 MG In NS 262.5 / 262.5 262.5 / 262.5 Inj 250 ML @ 250 mls/hr IV.SIG Q12H [facility]IL[facility] Rx#:[id number] Oral 1080 / 1080 240 / 240 Output: Urine 950 / 950 700 / 700 Narrative: GENERAL: NAD SKIN: Warm and dry. HEAD: Normocephalic. EYES: No scleral icterus. No injection or drainage. NECK: Supple, trachea midline. No JVD or lymphadenopathy. CARDIOVASCULAR: Regular rate and rhythm without murmurs, gallops, or rubs. RESPIRATORY: Breath sounds equal bilaterally. No accessory muscle use. GASTROINTESTINAL: Abdomen soft, non-tender, nondistended. MUSCULOSKELETAL: No cyanosis, or edema. BACK: Nontender without obvious deformity. No CVA tenderness. Bilateral breasts with centeno pattern incision, well-healed Left breast incision without erythema, nontender Right breast with diffuse blanching erythema Moderately tender to firm palpation No discharge expressed Roughly 1 cm sinus several centimeters above the right IMF within the vertical incision Results - Labs CBC & Chem 7: 03/11/18 05:46 03/13/18 05:41 Microbiology 03/10/18 21:00 Blood - Peripheral Aerobic Blood Culture - Preliminary No growth in 3 days 03/10/18 21:00 Blood - Peripheral Anaerobic Blood Culture - Preliminary No growth in 3 days 03/10/18 21:05 Blood - Peripheral Aerobic Blood Culture - Preliminary No growth in 3 days 03/10/18 21:05 Blood - Peripheral Anaerobic Blood Culture - Preliminary No growth in 3 days 03/10/18 23:59 Abscess - Breast Gram Stain - Final 03/10/18 23:59 Abscess - Breast Wound Culture - Final Staphylococcus aureus Staphylococcus lugdunensis - Procedures None Assessment and Plan - Assessment (1) Cellulitis of right breast Code(s): N61.0 - Mastitis without abscess Status: Acute - Plan 47 y/o female with SIRS: suspect right breast wound infection Right breast cellulitis B Breast reconstruction surgery -Currently on IV antibiotics aztreonam and vancomycin, however will discharge home on clindamycin 10 days. Breast wound culture positive for Staph -Plastic surgery consulted for evaluation due to finding on Breast US -Wound care nurse input appreciated -Continue pain management accordingly Left upper extremity swelling -Doppler negative for thrombosis Lactic acidosis -Resolved Lung nodule, in patient with history of breast cancer Chest CT reviewed and shows a 4 mm noncalcified nodule within the posterior aspect of the right upper lobe -Oncology ff -CT recommends follow up in 6 months History of breast cancer -Continue with Arimidex Depression, chronic -Continue home medications -Ativan PRN DVT prophylaxis: Lovenox
--- NOTE | 2018-03-14 11:06 | P.DS ---
Date of admission: 03/13/18 13:50 Primary care physician: UNKNOWN Anticipated date of discharge: 03/14/18 Brief History from admission: 47 y/o female with a history of breast cancer presented to the ED with complaints of a fever and not feeling well. Patient states she has had on and off fevers today. She had bilateral mastectomies one year ago and today she went to her plastic surgeons office today for evaluation of her incision to her right breast. The PA who saw her expressed fluid out of her incision. The patient is unsure of the color of the fluid expressed. She is complaining of intermittent, throbbing pain, 5/10, worse with touch, and with no radiation or associated symptoms. She also is complaining of shortness of breath that is better now that she is less feverish. She denies any nausea, vomiting, dizziness or headaches. DS: Diagnosis - Discharge Diagnosis (1) Cellulitis of right breast Status: Acute DS: Summary Hospital Course: While in hospital, patient was treated for: SIRS: suspect right breast wound infection Right breast cellulitis B Breast reconstruction surgery -She was treated with IV antibiotics aztreonam and vancomycin, however will discharge home on clindamycin 10 days. Breast wound culture positive for Staph -Plastic surgery consulted for evaluation due to finding on Breast US. Patient will need outpatient follow-up with plastic surgeon next 03/18/18 -Wound care nurse input appreciated -Continue pain management accordingly Left upper extremity swelling -Doppler negative for thrombosis Lactic acidosis -Resolved Lung nodule, in patient with history of breast cancer Chest CT reviewed and shows a 4 mm noncalcified nodule within the posterior aspect of the right upper lobe -Oncology ff -CT recommends follow up in 6 months History of breast cancer -Treated with with Arimidex Depression, chronic -Continue home medications -Ativan PRN DVT prophylaxis: Lovenox - Time Spent with Patient Total time spent providing and/or coordinating discharge services: Greater than 30 minutes - Quality: VTE Deep Vein Thrombosis/Pulmonary Embolism Present on Admission: No Exam Vital signs: Vital Signs 03/13/18 15:00 03/13/18 20:00 03/13/18 20:25 Temperature 98 F 98.7 F Pulse Rate 76 79 90 Respiratory Rate 18 18 Blood Pressure 102/77 120/85 Pulse Oximetry 97 03/14/18 00:48 03/14/18 04:00 03/14/18 07:00 Temperature 98.4 F 98.3 F Pulse Rate 75 76 79 Respiratory Rate 18 18 Blood Pressure 135/93 H 124/87 Pulse Oximetry 96 03/14/18 08:23 Temperature 98.1 F Pulse Rate 77 Respiratory Rate 17 Blood Pressure 131/86 Pulse Oximetry 77 L Intake & Output 03/13/18 03/14/18 03/14/18 18:59 06:59 18:59 Intake Total 1442.5 / 1442.5 602.5 / 602.5 100 / 100 Output Total 950 / 950 700 / 700 Balance 492.5 / 492.5 -97.5 / -97.5 100 / 100 Weight 64.2 kg Intake: IV 362.5 / 362.5 362.5 / 362.5 100 / 100 Azactam Inj 1,000 MG In NS Inj 100 / 100 100 / 100 100 / 100 100 ML @ 200 mls/hr IV.SIG Q12H [facility]IL[facility] Rx#:[id number] Vancomycin Inj 1,250 MG In NS 262.5 / 262.5 262.5 / 262.5 Inj 250 ML @ 250 mls/hr IV.SIG Q12H SIL[facility]IA Rx#:[id number] Oral 1080 / 1080 240 / 240 Output: Urine 950 / 950 700 / 700 Narrative: GENERAL: NAD SKIN: Warm and dry. HEAD: Normocephalic. EYES: No scleral icterus. No injection or drainage. NECK: Supple, trachea midline. No JVD or lymphadenopathy. CARDIOVASCULAR: Regular rate and rhythm without murmurs, gallops, or rubs. RESPIRATORY: Breath sounds equal bilaterally. No accessory muscle use. GASTROINTESTINAL: Abdomen soft, non-tender, nondistended. MUSCULOSKELETAL: No cyanosis, or edema. BACK: Nontender without obvious deformity. No CVA tenderness. Bilateral breasts with centeno pattern incision, well-healed Left breast incision without erythema, nontender Right breast with diffuse blanching erythema Moderately tender to firm palpation No discharge expressed Roughly 1 cm sinus several centimeters above the right IMF within the vertical incision Results Procedures completed during hospitalization: None Labs on day of discharge: Preliminary micro results at discharge 03/10/18 21:00 Aerobic Blood Culture - Preliminary Blood - Peripheral No growth in 4 days Anaerobic Blood Culture - Preliminary No growth in 4 days 03/10/18 21:05 Aerobic Blood Culture - Preliminary Blood - Peripheral No growth in 4 days Anaerobic Blood Culture - Preliminary No growth in 4 days - Impressions ITS Impressions Chest X-Ray 03/10/18 20:59 CONCLUSION: Negative examination. Abdomen/Pelvis CT 03/10/18 21:22 CONCLUSION: 1. Negative CT Abdomen and Pelvis with contrast. Chest CT 03/10/18 21:22 CONCLUSION: 1. Minimal scattered atelectatic changes within the posterior lungs bilaterally. 2. 4 mm noncalcified nodule within the posterior aspect of the right upper lobe which is indeterminate. Follow-up CT of the chest in 6 months would be helpful for further evaluation. Breast Ultrasound 03/12/18 00:00 CONCLUSION: 1. There appears to be a hole in the skin with a tract that leads down to the implant located at 6:00, 10 cm from the nipple. Venous Doppler Study 03/12/18 00:00 CONCLUSION: 1. No evidence of DVT. Discharge Plan - Discharge Disposition Patient Disposition: Disch W/Home Health Service - Discharge Condition Condition: Good - Discharge Order Discharge Orders: Discharge Order (Routine); Ordered 03/14/18 Ordered By: Corwin Paulson - Physicians Team Primary Care Provider: UNKNOWN, Attending Provider: Corwin Paulson Other Providers: [employer] ; Jenniffer Akhtar MD ; Yaakov Benjamin MD
[2018-03-14 11:26] VITALS: BP 128/75; PULSE 74; RESP 18; TEMP 98.5; O2SAT 98
[2018-03-14] MEDS ORDERED: Pharmacy Ordered Lab Info OTHER ONE (11:45)
== END 2018-03-14 14:05 | disposition home health service (06) ==
LOC: NEPE 20:43 → NEDA 20:43 → HCIN 03-11 00:59
PROVIDERS: ADMIT Hospitalist; ATTEND Hospitalist